=== PATIENT | male | born 1945 | race Caucasian/White ===

== ENCOUNTER 2017-02-23 10:28 | Emergency (ER) | payer MEDICARE, BC ==
[2017-02-23] MEDS ORDERED: 0.9 % SODIUM CHLORIDE 1,000 ML BAG IV ONE (11:13)
[2017-02-23 11:35] LABS: BASO % 0.2 % (0-6); EOS % 1.5 % (0-6); GRAN % 78.7 % (47-80); HEMATOCRIT 41.7 % (42.0-52.0); HEMOGLOBIN 13.9 gm/dl (14.0-18.0); LYMPH % 11.4 % (16-45); MEAN CELL VOLUME 96.3 fl (81-97); MEAN CORPUSCULAR HEMOGLOBIN 32.1 pg (27-33); MEAN CORPUSCULAR HGB CONC 33.3 g/dl (32-36); MEAN PLATELET VOLUME 11.9 fl (7.4-10.4); MONO % 8.2 % (0-9); PLATELET COUNT 242 K/uL (130-400); RED BLOOD COUNT 4.33 M/uL (4.40-5.70); RED CELL DISTRIBUTION WIDTH 16.5 % (11.5-14.5)
--- NOTE | 2017-02-23 11:35 | Emergency Department Record ---
History of Present Illness - General Chief complaint: Hypergylcemia Stated complaint: HIGH BLOOD SUGAR Time Seen by Provider: 02/23/17 10:39 Source: Patient Mode of Arrival: Ambulatory Limitations: No limitations - History of Present Illness Initial comments: pt comes in because he has been turning yellow and itching over the last 5 days. he also has had a 50lb wt loss over the last 6 months without trying -: Unknown Location: Generalized Associated Symptoms: Easy bruising, Loss of appetite, Nausea/vomiting - Renu Coma Scale Eye Response: (4) Open spontaneously Motor Response: (6) Obeys commands Verbal Response: (5) Oriented Renu Total: 15 - Related Data Previous Rx's Medication Instructions Recorded Metoprolol Succinate [Toprol Xl] 50 mg PO BID #60 tab.er.24h 03/11/15 Allergies Allergy/AdvReac Type Severity Reaction Status Date / Time Penicillins Allergy Unknown RASH Verified 02/23/17 10:39 mupirocin [From Bactroban] Allergy HIVES Verified 02/23/17 10:39 mupirocin calcium Allergy HIVES Verified 02/23/17 10:39 [From Bactroban] varenicline tartrate Allergy RASH Verified 02/23/17 10:39 [From Chantix] Travel Screening - Travel/Exposure Within Last 30 Days Have you traveled within the last 30 days?: No Review of Systems Reviewed: No additional complaints except as noted below Constitutional: Reports: As per HPI. Denies: Chills, Fever, Malaise, Night sweats, Weakness, Weight change Eyes: Reports: As per HPI. Denies: Eye discharge, Eye pain, Photophobia, Vision change ENT: Reports: As per HPI. Denies: Congestion, Dental pain, Ear pain, Epistaxis , Hearing loss, Throat pain Respiratory: Reports: As per HPI. Denies: Cough, Dyspnea, Hemoptysis, Stridor, Wheezes Cardiovascular: Reports: As per HPI. Denies: Arrhythmia, Chest pain, Dyspnea on exertion, Edema, Murmurs, Orthopnea, Palpitations, Paroxysmal nocturnal dyspnea, Rheumatic Fever, Syncope Endocrine: Reports: As per HPI. Denies: Fatigue, Heat or cold intolerance, Polydipsia, Polyuria Gastrointestinal: Reports: As per HPI. Denies: Abdominal pain, Constipation, Diarrhea, Hematemesis, Hematochezia, Melena, Nausea, Vomiting Genitourinary: Reports: As per HPI. Denies: Dysuria, Frequency, Hematuria, Incontinence, Retention, Testicular pain, Testicular mass, Urgency Musculoskeletal: Reports: As per HPI. Denies: Arthralgia, Back pain, Gout, Joint swelling, Myalgia, Neck pain Skin: Reports: As per HPI. Denies: Bruising, Change in color, Change in hair/ nails, Lesions, Pruritus, Rash Neurological: Reports: As per HPI. Denies: Abnormal gait, Confusion, Headache, Numbness, Paresthesias, Seizure, Tingling, Tremors, Vertigo, Weakness Psychiatric: Reports: As per HPI. Denies: Anxiety, Auditory hallucinations, Depression, Homicidal thoughts, Suicidal thoughts, Visual hallucinations Hematological/Lymphatic: Reports: As per HPI. Denies: Anemia, Blood Clots, Easy bleeding, Easy bruising, Swollen glands Past Medical History - SOCIAL HISTORY Smoking Status: Current every day smoker Alcohol Use: None Drug Use: None - RESPIRATORY Hx Respiratory Disorders: Yes Hx Asthma: Yes Hx Bronchitis: Yes - CARDIOVASCULAR Hx Cardio Disorders: Yes Hx Abnormal EKG: Yes Hx Cardiac Cath: Yes Hx Edema: Yes (2002) Hx Heart Attack: Yes (2002) Hx Hypertension: No Hx Irregular Heartbeat: Yes (svt; had ablation years ago; dr vieira; still has occasioinal runs svt) Hx Palpitations: Yes Hx Coronary Stent: Yes (;) Hx Percutaneous Transluminal Coronary Angioplasty (PTCA): Yes Comment:: CAD, stent placed 2002, murmur - NEURO Hx Neuro Disorders: No - GI Hx GI Disorders: Yes Hx Reflux: Yes Hx of Polyps: Yes - Hx Genitourinary Disorders: Yes Hx Prostate Problems: Yes - ENDOCRINE Hx Endocrine Disorders: Yes Hx Diabetes: Yes (DM2) - MUSCULOSKELETAL Hx Musculoskeletal Disorders: No - PSYCH Hx Psych Problems: No - HEMATOLOGY/ONCOLOGY Hx Hematology/Oncology Disorders: No Family Medical History Any Significant Family History?: Yes Hx Alcohol Use: Father Hx Cancer: Father, Brother/Sister Hx Dementia: Brother/Sister Hx Diabetes: Mother Hx Heart Disease: Father, Mother Hx HTN: Mother Hx Resp Disorders: Father Physical Exam - General General Appearance: Alert, Oriented x3, Cooperative, Mild distress - Head Head exam: Normal inspection - Eye Eye exam: Normal appearance, PERRL, EOMI, Scleral icterus Pupils: Normal accommodation - ENT ENT exam: Normal exam, Mucous membranes moist, Normal external ear exam, Normal orophraynx Ear exam: Normal external inspection. negative: External canal tenderness Nasal Exam: Normal inspection. negative: Discharge, Sinus tenderness Mouth exam: Normal external inspection, Tongue normal Teeth exam: Normal inspection. negative: Dental caries Throat exam: Normal inspection. negative: Tonsillar erythema, Tonsillar exudate - Neck Neck exam: Normal inspection, Full ROM. negative: Tenderness - Respiratory Respiratory exam: Normal lung sounds bilaterally. negative: Respiratory distress - Cardiovascular Cardiovascular Exam: Regular rate, Normal rhythm, Normal heart sounds - GI/Abdominal GI/Abdominal exam: Soft, Normal bowel sounds, Tenderness - Rectal Rectal exam: Deferred - exam: Deferred - Extremities Extremities exam: Normal inspection, Full ROM, Normal capillary refill. negative: Tenderness - Back Back exam: Reports: Normal inspection, Full ROM. Denies: Muscle spasm, Rash noted, Tenderness - Neurological Neurological exam: Alert, CN II-XII intact, Normal gait, Oriented X3 - Psychiatric Psychiatric exam: Normal affect, Normal mood - Skin Skin exam: Dry, Intact, Warm, Other (jaundice) Course Vital Signs 02/23/17 10:31 Temperature 97.7 F Pulse Rate 60 Respiratory 18 Rate Blood Pressure 108/78 Pulse Ox 98 Medical Decision Making - Lab Data Result diagrams: 02/23/17 11:23 02/23/17 11:23 Disposition Disposition: Transfer Clinical Impression: Pancreatic mass, Jaundice, Prostatic mass, Biliary obstruction, Weight loss Disposition: Acute Care Hospital Transfer Transfer To: [facility] Reason For Transfer: needs specialists Accepting Physician: dr scott Time Discussed w/Accepting Physician: 13:36 Forms: Patient Portal Access Quality - Quality Measures Quality Measures: N/A - Blood Pressure Screening Does Patient Have Any of the Following: No Blood Pressure Classification: Normal BP Reading Systolic Measurement: 108 Diastolic Measurement: 78 Screening for High Blood Pressure: < Normal BP, F/U Not Required > [G8783]
[2017-02-23 11:37] LABS: URINE APPEARANCE CLEAR; URINE BILIRUBIN MODERATE (NEGATIVE); URINE BLOOD NEGATIVE (NEGATIVE); URINE KETONE TRACE (NEGATIVE); URINE LEUKOCYTE ESTERASE NEGATIVE (NEGATIVE); URINE NITRITE NEGATIVE (NEGATIVE); URINE PROTEIN NEGATIVE (NEGATIVE)
[2017-02-23 11:40] LABS: URINE COLOR ORANGE; URINE GLUCOSE (UA) >=1000 mg/dL (NEGATIVE)
[2017-02-23 11:50] LABS: ALBUMIN 3.8 g/dL (4.0-5.0); ALKALINE PHOSPHATASE 943 U/L (40-129); ALT/SGPT 410 U/L (<41); AST/SGOT 266 U/L (10.0-50.0); BILIRUBIN,DIRECT 8.8 mg/dL (0-0.3); BLOOD UREA NITROGEN 31 mg/dL (8-23); CREATININE 0.9 mg/dL (0.7-1.2); EST GLOMERULAR FILTRATION RATE > 60 mL/min; GLUCOSE,RANDOM 205 mg/dL (74-109); LIPASE 13 U/L (13-60); TOTAL PROTEIN 6.8 g/dL (6.6-8.7)
[2017-02-23 23:58] LABS: HEP A AB IGM Nonreactive (Nonreactive); HEPATITIS B CORE ANTIBODY,IGM Nonreactive (Nonreactive); HEPATITIS B SURFACE ANTIGEN Nonreactive (Nonreactive)
[2017-02-24 07:27] LABS: HEPATITIS C VIRUS ANTIBODY Equivocal (Nonreactive)
--- NOTE | 2017-02-24 08:56 | CT SCAN REPORT ---
EXAM: CT OF THE ABDOMEN AND PELVIS HISTORY: ITCHING AND WEIGHT LOSS. TECHNIQUE: CT of the abdomen and pelvis was performed following IV administration of 100 ml of Omnipaque 300 contrast. Oral contrast was also utilized. Comparison: None. FINDINGS: Limited evaluation of the lung bases is unremarkable. The osseous structures are grossly intact. Fatty infiltrative change to the liver. The spleen is unremarkable. Nodularity to the adrenal glands bilaterally. Left adrenal nodule measures 2.2 x 1.4 cm. Right adrenal nodule measures 1.4 x 1.2 cm. Parapelvic cysts of the left kidney. The kidneys are otherwise unremarkable. There is a moderate degree of motion artifact. The gallbladder is present. There is intra and extrahepatic biliary ductal dilatation. The maximal diameter of the CBD is approximately 16 mm, distally. Findings are secondary to a poorly defined mass in the region of the pancreatic head measuring approximately 2.2 x 1.9 x 2.7 cm. Findings are highly suspicious for malignancy. No free air or free fluid. Abundant stool in the colon. Moderate atheromatous change. Enlargement of the prostate with a hyperdense nodule in the left aspect of the prostate measuring 1.5 x 1.4 cm. The osseous structures are grossly intact. IMPRESSION: 1. INTRA AND EXTRAHEPATIC BILIARY DUCTAL DILATATION, SECONDARY TO A POORLY DEFINED AND HYPODENSE MASS IN THE REGION OF THE PANCREATIC HEAD. FINDINGS ARE CONCERNING FOR MALIGNANCY. 2. BILATERAL ADRENAL NODULES. THESE ARE NONSPECIFIC. THESE COULD FURTHER BE ASSESSED WITH MULTIPHASIC MRI. 3. UNDERLYING FATTY INFILTRATIVE CHANGE TO THE LIVER. 4. ENLARGEMENT OF THE PROSTATE WITH A HYPERDENSE NODULE IN THE LEFT ASPECT OF THE PROSTATE. CORRELATE WITH PHYSICAL EXAM AND PSA RESULTS. 5. ABUNDANT STOOL IN THE COLON. JOB NUMBER: [id number] [facility]
== END 2017-02-23 14:30 | disposition short-term general hospital (02) ==
LOC: ER 10:28
DX: K86.9 Disease of pancreas, unspecified (principal); N42.89 Other specified disorders of prostate; K83.1 Obstruction of bile duct; R17 Unspecified jaundice; R11.2 Nausea with vomiting, unspecified; R63.4 Abnormal weight loss; E11.9 Type 2 diabetes mellitus without complications; I25.2 Old myocardial infarction; F17.210 Nicotine dependence, cigarettes, uncomplicated
CPT/HCPCS: 36416; 74177; 80048; 80076; 81003; 82948; 83605; 83690; 85025; 96360; 96361; 99285; G0103; J7030

== ENCOUNTER 2017-03-25 03:33 | Emergency (ER) | payer MEDICARE, BC ==
[2017-03-25] MEDS ORDERED: 0.9 % SODIUM CHLORIDE 1,000 ML BAG IV ONE (03:50)
[2017-03-25 04:05] LABS: HEMATOCRIT 36.6 % (42.0-52.0); HEMOGLOBIN 11.8 gm/dl (14.0-18.0); MEAN CELL VOLUME 99.5 fl (81-97); MEAN CORPUSCULAR HGB CONC 32.2 g/dl (32-36); MEAN PLATELET VOLUME 10.5 fl (7.4-10.4); PLATELET COUNT 393 K/uL (130-400); RED BLOOD COUNT 3.68 M/uL (4.40-5.70); RED CELL DISTRIBUTION WIDTH 14.7 % (11.5-14.5); WHITE BLOOD COUNT W/O DIFF 17.9 K/uL (4.2-12.2)
[2017-03-25 04:20] LABS: PLATELET ESTIMATE NORMAL (NORMAL)
--- NOTE | 2017-03-25 04:21 | Emergency Department Record ---
History of Present Illness - General Chief Complaint: Rapid heartbeat Stated Complaint: RAPID HEART BEAT Time Seen by Provider: 03/25/17 03:39 Source: Patient Mode of Arrival: Wheelchair Limitations: No limitations - History of Present Illness Initial Comments: pt has had palpitations and rapid hr for 1 hour. pt has had svt many times in the past. he denies any chest pain. pt had a whipple procedure on 02/28 for pancreatic mass and is due to start chemo. pt denies any leg pain or sob MD Complaint: "Heart racing", Rapid heart beat Onset/Timin -: Minutes(s) Context: Awoke with symptoms Arrythmia History: SVT Associated Symptoms: Denies other symptoms Treatments Prior to Arrival: Vagal maneuvers - Related Data Home Medications Medication Instructions Recorded Confirmed Last Taken Montelukast Sodium [Singulair] 10 mg PO QHS 03/25/17 03/25/17 Unknown Pioglitazone HCl [Actos] 15 mg PO DAILY 03/25/17 03/25/17 Unknown Allergies Allergy/AdvReac Type Severity Reaction Status Date / Time Penicillins Allergy Unknown RASH Verified 03/25/17 03:35 mupirocin [From Bactroban] Allergy HIVES Verified 03/25/17 03:35 mupirocin calcium Allergy HIVES Verified 03/25/17 03:35 [From Bactroban] varenicline tartrate Allergy RASH Verified 03/25/17 03:35 [From Chantix] Travel Screening - Travel/Exposure Within Last 30 Days Have you traveled within the last 30 days?: No - Travel/Exposure Within Last Year Have you traveled outside the [place] in the last year?: No - Additonal Travel Details Have you been exposed to anyone with a communicable illness?: No - Travel Symptoms Symptom Screening: None Review of Systems Reviewed: No additional complaints except as noted below Constitutional: Reports: As per HPI. Denies: Chills, Fever, Malaise, Night sweats, Weakness, Weight change Eyes: Reports: As per HPI. Denies: Eye discharge, Eye pain, Photophobia, Vision change ENT: Reports: As per HPI. Denies: Congestion, Dental pain, Ear pain, Epistaxis , Hearing loss, Throat pain Respiratory: Reports: As per HPI. Denies: Cough, Dyspnea, Hemoptysis, Stridor, Wheezes Cardiovascular: Reports: As per HPI. Denies: Arrhythmia, Chest pain, Dyspnea on exertion, Edema, Murmurs, Orthopnea, Palpitations, Paroxysmal nocturnal dyspnea, Rheumatic Fever, Syncope Endocrine: Reports: As per HPI. Denies: Fatigue, Heat or cold intolerance, Polydipsia, Polyuria Gastrointestinal: Reports: As per HPI. Denies: Abdominal pain, Constipation, Diarrhea, Hematemesis, Hematochezia, Melena, Nausea, Vomiting Genitourinary: Reports: As per HPI. Denies: Dysuria, Frequency, Hematuria, Incontinence, Retention, Testicular pain, Testicular mass, Urgency Musculoskeletal: Reports: As per HPI. Denies: Arthralgia, Back pain, Gout, Joint swelling, Myalgia, Neck pain Skin: Reports: As per HPI. Denies: Bruising, Change in color, Change in hair/ nails, Lesions, Pruritus, Rash Neurological: Reports: As per HPI. Denies: Abnormal gait, Confusion, Headache, Numbness, Paresthesias, Seizure, Tingling, Tremors, Vertigo, Weakness Psychiatric: Reports: As per HPI. Denies: Anxiety, Auditory hallucinations, Depression, Homicidal thoughts, Suicidal thoughts, Visual hallucinations Hematological/Lymphatic: Reports: As per HPI. Denies: Anemia, Blood Clots, Easy bleeding, Easy bruising, Swollen glands Past Medical History - SOCIAL HISTORY Smoking Status: Light tobacco smoker (<10/day) Alcohol Use: None Drug Use: None - RESPIRATORY Hx Respiratory Disorders: Yes Hx Asthma: Yes Hx Bronchitis: Yes - CARDIOVASCULAR Hx Cardio Disorders: Yes Hx Abnormal EKG: Yes Hx Cardiac Cath: Yes Hx Edema: Yes (2002) Hx Heart Attack: Yes (2002) Hx Hypertension: No Hx Irregular Heartbeat: Yes (svt; had ablation years ago; dr vieira; still has occasioinal runs svt) Hx Palpitations: Yes Hx Coronary Stent: Yes (4;) Hx Percutaneous Transluminal Coronary Angioplasty (PTCA): Yes Comment:: CAD, stent placed 2002, murmur - NEURO Hx Neuro Disorders: No - GI Hx GI Disorders: Yes Hx Reflux: Yes Hx of Polyps: Yes - Hx Genitourinary Disorders: Yes Hx Prostate Problems: Yes - ENDOCRINE Hx Endocrine Disorders: Yes Hx Diabetes: Yes (DM2) - MUSCULOSKELETAL Hx Musculoskeletal Disorders: No - PSYCH Hx Psych Problems: No - HEMATOLOGY/ONCOLOGY Hx Hematology/Oncology Disorders: No Family Medical History Any Significant Family History?: No Hx Alcohol Use: Father Hx Cancer: Father, Brother/Sister Hx Dementia: Brother/Sister Hx Diabetes: Mother Hx Heart Disease: Father, Mother Hx HTN: Mother Hx Resp Disorders: Father Physical Exam - General General Appearance: Alert, Oriented x3, Cooperative, Mild distress - Head Head exam: Normal inspection - Eye Eye exam: Normal appearance, PERRL, EOMI Pupils: Normal accommodation - ENT ENT exam: Normal exam, Mucous membranes moist, Normal external ear exam, Normal orophraynx Ear exam: Normal external inspection. negative: External canal tenderness Nasal Exam: Normal inspection. negative: Discharge, Sinus tenderness Mouth exam: Normal external inspection, Tongue normal Teeth exam: Normal inspection. negative: Dental caries Throat exam: Normal inspection. negative: Tonsillar erythema, Tonsillar exudate - Neck Neck exam: Normal inspection, Full ROM. negative: Tenderness - Respiratory Respiratory exam: Normal lung sounds bilaterally. negative: Respiratory distress - Cardiovascular Cardiovascular Exam: Normal rhythm, Normal heart sounds, Tachycardia - GI/Abdominal GI/Abdominal exam: Soft, Normal bowel sounds, Tenderness - Rectal Rectal exam: Deferred - exam: Deferred - Extremities Extremities exam: Normal inspection, Full ROM, Normal capillary refill. negative: Tenderness - Back Back exam: Reports: Normal inspection, Full ROM. Denies: Muscle spasm, Rash noted, Tenderness - Neurological Neurological exam: Alert, CN II-XII intact, Normal gait, Oriented X3 - Psychiatric Psychiatric exam: Normal affect, Normal mood - Skin Skin exam: Dry, Intact, Normal color, Warm Course Vital Signs 03/25/17 03:35 Temperature 97.6 F Pulse Rate 180 H Respiratory 28 H Rate Blood Pressure 89/52 Pulse Ox 100 - Reevaluation(s) Reevaluation #1: 03/25/17 04:21 pt spontaneously converted shortly after arrival prior to recieving any meds Medical Decision Making - Lab Data Result diagrams: 03/25/17 03:43 03/25/17 03:43 Lab Results 03/25/17 Range/Units 03:43 WBC 17.9 H (4.2-12.2) K/uL RBC 3.68 L (4.40-5.70) M/uL Hgb 11.8 L (14.0-18.0) gm/dl Hct 36.6 L (42.0-52.0) % MCV 99.5 H (81-97) fl MCH 32.0 (27-33) pg MCHC 32.2 (32-36) g/dl RDW 14.7 H (11.5-14.5) % Plt Count 393 (130-400) K/uL MPV 10.5 H (7.4-10.4) fl Eosinophils % Not Reportable Basophils % Not Reportable Disposition Disposition: Discharge Clinical Impression: SVT (supraventricular tachycardia) Hypotension Qualifiers: Hypotension type: hypotension due to drug Qualified Code(s): I95.2 - Hypotension due to drugs Disposition: Home, Self-Care Condition: (1) Good Instructions: Supraventricular Tachycardia (ED), Valsalva Maneuver (ED), Hypotension (ED) Additional Instructions: follow up with family doctor and animal control specialist. return sooner if worse. stop zestoretic [lisinopril/hctz]. stand slowly. Forms: Patient Portal Access Quality - Quality Measures Quality Measures: N/A - Blood Pressure Screening Does Patient Have Any of the Following: No Blood Pressure Classification: Normal BP Reading Systolic Measurement: 89 Diastolic Measurement: 52 Screening for High Blood Pressure: < Normal BP, F/U Not Required > [G8783]
[2017-03-25 04:24] LABS: BLOOD UREA NITROGEN 17 mg/dL (8-23); EST GLOMERULAR FILTRATION RATE > 60 mL/min
[2017-03-25 04:25] LABS: TOTAL PROTEIN 6.8 g/dL (6.6-8.7)
[2017-03-25 04:27] LABS: GLUCOSE,RANDOM 213 mg/dL (74-109)
[2017-03-25 04:29] LABS: ALB/GLOB RATIO 0.7 (1.1-1.8); ALBUMIN 2.9 g/dL (4.0-5.0); ALT/SGPT 59 U/L (<41); AST/SGOT 53 U/L (10.0-50.0)
[2017-03-25 04:30] LABS: ALKALINE PHOSPHATASE 242 U/L (40-129); CREATINE PHOSPHOKINASE 43 U/L (39-308)
[2017-03-25 04:32] LABS: CKMB 1.7 ng/mL (<6.73)
--- NOTE | 2017-03-26 19:17 | RADIOLOGY REPORT ---
EXAM: CHEST AP or PA ONLY HISTORY: DIFFICULTY BREATHING. TECHNIQUE: A portable AP view of the chest was performed. FINDINGS: Heart size is normal. Lungs are hyperinflated. No infiltrate or pleural effusion. The osseous structures are normal. IMPRESSION: NEGATIVE CHEST EXAMINATION. JOB NUMBER: [id number] [facility]
== END 2017-03-25 05:14 | disposition home or self-care (01) ==
LOC: ER 03:33
DX: I47.1 Supraventricular tachycardia (principal); I95.2 Hypotension due to drugs; T46.4X5A Adverse effect of angiotensin-converting-enzyme inhibitors, initial encounter; R06.00 Dyspnea, unspecified; I25.2 Old myocardial infarction; E11.9 Type 2 diabetes mellitus without complications; C25.9 Malignant neoplasm of pancreas, unspecified; F17.210 Nicotine dependence, cigarettes, uncomplicated
CPT/HCPCS: 71010; 80053; 82550; 82553; 84484; 85027; 93005; 93010; 96360; 99284; J7030

== ENCOUNTER 2017-04-23 20:11 | Inpatient (IN) | payer MEDICARE, BC ==
[2017-04-23] MEDS ORDERED: SODIUM CHLORIDE 0.9% 500 ML IV ONE (20:28)
[2017-04-23] MEDS ORDERED: ONDANSETRON HCL IV 4 MG/2 ML VIAL IV ONE (20:28)
[2017-04-23] MEDS ORDERED: MORPHINE SULFATE 5 MG/ML PFS IVP ONE (20:29)
--- NOTE | 2017-04-23 20:32 | Emergency Department Record ---
History of Present Illness - General Chief Complaint: Abdominal Pain Stated Complaint: ABDOMINAL PAIN AND ACID REFLUX Time Seen by Provider: 04/23/17 20:23 Source: Patient Mode of Arrival: Ambulatory Limitations: No limitations - History of Present Illness Initial Comments: The patient is here due to upper abdominal pain for 3 days. The pain is aching and associated with nausea and reflux like regurgitation symptoms. He has been unable to eat for 3 days also. The patient denies any vomiting, but has had some loose stools. He did just have a Whipple procedure performed 8 weeks ago at [facility] by Dr. Fuentes. He has had pain since but it has been increased for the last 3 days. MD Complaint: Abdominal pain Onset/Timin -: Days(s) Location: Epigastric, Periumbilical Consistency: Intermittent Improves With: Bowel movement Associated Symptoms: Diarrhea, Nausea - Related Data Home Medications Medication Instructions Recorded Confirmed Last Taken Ipratropium/Albuterol Sulfate 1 puff IH QID 04/23/17 04/23/17 Unknown [Combivent] Lipase/Protease/Amylase [Shauna Thibodeaux 1 each PO DAILY 04/23/17 04/23/17 Unknown 36,000 Units Capsule] Prochlorperazine Maleate 10 mg PO Q6H PRN 04/23/17 04/23/17 Unknown [Prochlorperazine Maleate] Allergies Allergy/AdvReac Type Severity Reaction Status Date / Time Penicillins Allergy Unknown RASH Verified 03/25/17 03:35 mupirocin [From Bactroban] Allergy HIVES Verified 03/25/17 03:35 mupirocin calcium Allergy HIVES Verified 03/25/17 03:35 [From Bactroban] varenicline tartrate Allergy RASH Verified 03/25/17 03:35 [From Chantix] Travel Screening - Travel/Exposure Within Last 30 Days Have you traveled within the last 30 days?: No - Travel Symptoms Symptom Screening: None Review of Systems Constitutional: Denies: Chills, Fever Eyes: Denies: Eye discharge ENT: Denies: Congestion Respiratory: Denies: Cough, Dyspnea Past Medical History - SOCIAL HISTORY Smoking Status: Current every day smoker - RESPIRATORY Hx Respiratory Disorders: Yes Hx Asthma: Yes Hx Bronchitis: Yes - CARDIOVASCULAR Hx Cardio Disorders: Yes Hx Abnormal EKG: Yes Hx Cardiac Cath: Yes Hx Edema: Yes (2002) Hx Heart Attack: Yes (2002) Hx Hypertension: No Hx Irregular Heartbeat: Yes (svt; had ablation years ago; dr vieira; still has occasioinal runs svt) Hx Palpitations: Yes Hx Coronary Stent: Yes (4;) Hx Percutaneous Transluminal Coronary Angioplasty (PTCA): Yes Comment:: CAD, stent placed 2002, murmur - NEURO Hx Neuro Disorders: No - GI Hx GI Disorders: Yes Hx Reflux: Yes Hx of Polyps: Yes - Hx Genitourinary Disorders: Yes Hx Prostate Problems: Yes - ENDOCRINE Hx Endocrine Disorders: Yes Hx Diabetes: Yes (DM2) - MUSCULOSKELETAL Hx Musculoskeletal Disorders: No - PSYCH Hx Psych Problems: No - HEMATOLOGY/ONCOLOGY Hx Hematology/Oncology Disorders: No Family Medical History Any Significant Family History?: Yes Hx Alcohol Use: Father Hx Cancer: Father, Brother/Sister Hx Dementia: Brother/Sister Hx Diabetes: Mother Hx Heart Disease: Father, Mother Hx HTN: Mother Hx Resp Disorders: Father Physical Exam - General General Appearance: Alert, Oriented x3, Cooperative, No acute distress - Head Head exam: Atraumatic, Normocephalic, Normal inspection - Eye Eye exam: Normal appearance, PERRL - Neck Neck exam: Normal inspection, Full ROM. negative: Tenderness - Respiratory Respiratory exam: Normal lung sounds bilaterally. negative: Respiratory distress - Cardiovascular Cardiovascular Exam: Regular rate, Normal rhythm, Normal heart sounds - GI/Abdominal GI/Abdominal exam: Soft, Tenderness (There is diffuse upper abdominal tenderness.). negative: Distended, Hypoactive bowel sounds, Rebound, Rigid - Extremities Extremities exam: Normal inspection, Full ROM, Normal capillary refill. negative: Tenderness Course Vital Signs 04/23/17 20:16 Temperature 97.8 F Pulse Rate 70 Respiratory 28 H Rate Blood Pressure 144/101 Pulse Ox 97 - Reevaluation(s) Reevaluation #1: The patient is doing OK at this time. He is not requesting any more pain medicines. He is drinking his oral contrast slowly. 04/23/17 20:53 Reevaluation #2: The patient is doing OK at this time. He denies the need for any pain medicines. He now says the pain is now worse in the lower abdomen bilaterally. 04/23/17 21:59 Reevaluation #3: I did discuss the case with the patient's surgeon eligibility consultant at [facility] Dr. Chavarria. He suggests that the patient just needs an NGT and can be admitted here at [facility]. If the patient's case worsens we can transfer the patient then. I did discuss this with the patient and he agrees with the plan and would like to be admitted here at [facility]. He presently is very stable and in good spirits. 04/23/17 23:26 Medical Decision Making - Data Complexity MDM Data: Labs Ordered and/or Reviewed, X-Ray Ordered and/or Reviewed - Lab Data Result diagrams: 04/23/17 20:20 04/23/17 20:20 - Radiology Data Radiology results: Report reviewed (CT: Gastric outlet obstruction with a few small bowel air fluid levels.) Disposition Disposition: Admit Clinical Impression: SBO (small bowel obstruction) Disposition: Still a Patient at [facility] Decision to Admit: Admit from ER Decision to Admit Date: 04/23/17 Decision to Admit Time: 23:28 Accepting Physician: Flores Time Discussed w/Accepting Physician: 23:28 Condition: (2) Stable Time of Disposition: 23:28 Quality - Quality Measures Quality Measures: N/A - Blood Pressure Screening View Details: Yes Does Patient Have Any of the Following: Active Dx of HTN Blood Pressure Classification: Hypertensive Reading Systolic Measurement: 144 Diastolic Measurement: 101 Screening for High Blood Pressure: Patient Exclusion, Hx of HTN [G9744]
[2017-04-23 20:36] LABS: BASO % 0.4 % (0-6); HEMATOCRIT 44.9 % (42.0-52.0); HEMOGLOBIN 15.1 gm/dl (14.0-18.0); LYMPH % 17.6 % (16-45); MEAN CELL VOLUME 95.1 fl (81-97); MEAN CORPUSCULAR HGB CONC 33.6 g/dl (32-36); MEAN PLATELET VOLUME 10.7 fl (7.4-10.4); PLATELET COUNT 273 K/uL (130-400); RED BLOOD COUNT 4.72 M/uL (4.40-5.70); RED CELL DISTRIBUTION WIDTH 14.7 % (11.5-14.5)
[2017-04-23 20:50] LABS: BLOOD UREA NITROGEN 17 mg/dL (8-23)
[2017-04-23 20:51] LABS: CREATININE 0.9 mg/dL (0.7-1.2); EST GLOMERULAR FILTRATION RATE > 60 mL/min; TOTAL PROTEIN 7.6 g/dL (6.6-8.7)
[2017-04-23 20:53] LABS: GLUCOSE,RANDOM 150 mg/dL (74-109)
[2017-04-23 20:56] LABS: ALBUMIN 4.4 g/dL (4.0-5.0); ALKALINE PHOSPHATASE 507 U/L (40-129); ALT/SGPT 105 U/L (<41); AST/SGOT 49 U/L (10.0-50.0); BILIRUBIN,DIRECT 0.3 mg/dL (0-0.3); LIPASE 5 U/L (13-60)
[2017-04-23] MEDS ORDERED: 0.9 % SODIUM CHLORIDE 1,000 ML BAG IV ONE (21:02)
[2017-04-23 23:02] LABS: URINE APPEARANCE CLEAR; URINE BILIRUBIN NEGATIVE (NEGATIVE); URINE BLOOD NEGATIVE (NEGATIVE); URINE COLOR YELLOW; URINE KETONE TRACE (NEGATIVE); URINE LEUKOCYTE ESTERASE NEGATIVE (NEGATIVE); URINE NITRITE NEGATIVE (NEGATIVE); URINE PROTEIN NEGATIVE (NEGATIVE); URINE UROBILINOGEN 0.2 E.U./dL (0.20 - 1.00)
[2017-04-24] MEDS ORDERED: MORPHINE SULFATE 5 MG/ML PFS IVP PRN (00:30)
[2017-04-24] MEDS ORDERED: IPRATROPIUM/ALBUTEROL 4 GM INH INH PRN (00:30)
[2017-04-24] MEDS ORDERED: POTASSIUM CHLORIDE/D5-0.9%NACL 20 MEQ/1,000 ML BAG IV ONE (00:30)
[2017-04-24] MEDS ORDERED: ONDANSETRON HCL IV 4 MG/2 ML VIAL IVP PRN (00:30)
[2017-04-24 06:45] LABS: BASO % 0.3 % (0-6); EOS % 6.8 % (0-6); GRAN % 67.1 % (47-80); HEMATOCRIT 40.9 % (42.0-52.0); HEMOGLOBIN 13.1 gm/dl (14.0-18.0); LYMPH % 18.1 % (16-45); MEAN CELL VOLUME 95.3 fl (81-97); MEAN CORPUSCULAR HEMOGLOBIN 30.5 pg (27-33); MEAN PLATELET VOLUME 10.2 fl (7.4-10.4); MONO % 7.7 % (0-9); PLATELET COUNT 241 K/uL (130-400); RED BLOOD COUNT 4.29 M/uL (4.40-5.70); RED CELL DISTRIBUTION WIDTH 14.6 % (11.5-14.5); WHITE BLOOD COUNT W/O DIFF 9.9 K/uL (4.2-12.2)
[2017-04-24 07:01] LABS: ALB/GLOB RATIO 1.2 (1.1-1.8); ALBUMIN 3.2 g/dL (4.0-5.0); ALKALINE PHOSPHATASE 375 U/L (40-129); ALT/SGPT 73 U/L (<41); AST/SGOT 30 U/L (10.0-50.0); BLOOD UREA NITROGEN 15 mg/dL (8-23); CREATININE 0.7 mg/dL (0.7-1.2); EST GLOMERULAR FILTRATION RATE > 60 mL/min; GLUCOSE,RANDOM 147 mg/dL (74-109); TOTAL PROTEIN 5.9 g/dL (6.6-8.7)
[2017-04-24] MEDS: IPRATROPIUM/ALBUTEROL (0.5MG/3MG) NEB INH SCH ×4 (09:27→21:14)
[2017-04-24] MEDS ORDERED: IPRATROPIUM/ALBUTEROL 4 GM INH INH SCH (10:00)
[2017-04-24] MEDS: PANTOPRAZOLE SODIUM IV 40 MG VIAL IV SCH (11:09)
[2017-04-24] MEDS: HUMULIN R 100 UNIT/ML VIAL SQ SCH ×2 (12:35→17:50)
[2017-04-24] MEDS: POTASSIUM CHLORIDE/D5-0.9%NACL 20 MEQ/1,000 ML BAG IV SCH (17:56)
[2017-04-25] MEDS: POTASSIUM CHLORIDE/D5-0.9%NACL 20 MEQ/1,000 ML BAG IV SCH ×2 (03:39→14:43)
[2017-04-25] MEDS: IPRATROPIUM/ALBUTEROL (0.5MG/3MG) NEB INH SCH ×2 (06:01→10:02)
--- NOTE | 2017-04-25 06:42 | CT SCAN REPORT ---
EXAM: CT SCAN ABDOMEN/PELVIS W CONTRAST HISTORY: PATIENT HAS A HISTORY OF WHIPPLE'S PROCEDURE. PATIENT IS IN GASTRIC DISTRESS. PATIENT HAS A HISTORY OF PANCREATIC CANCER. TECHNIQUE: Serial axial CT scan of the abdomen and pelvis was performed at 3.75 mm intervals from the dome diaphragm down to the pubic symphysis following the intravenous administration of 100 mL of Omnipaque 300. COMPARISON: Comparison studies of the abdomen and pelvis dated 02/23/2017 is provided. FINDINGS: Lung windows of the lung bases demonstrate no CT evidence of a focal infiltrate or pleural effusion. The visualized heart size and contour are within normal limits. The liver demonstrates air within the biliary system compatible with the patient 's history of Whipple's procedure. No suspicious hepatic lesions are identified. The spleen is unremarkable. Distal pancreatic body and tail appear unremarkable. Pancreatic head is not visualized, compatible with the patient's known history of Whipple's procedure. There is bilateral adrenal prominence, which is unchanged with respect to the prior CT scan. Differential considerations include adrenal hyperplasia. If there is further clinical concern, then MRI of the adrenal glands can be obtained for further evaluation. The gallbladder is surgically absent. There is no CT evidence of hydronephrosis or hydroureter. Prominent left parapelvic cysts are again identified. Mild ectasia infrarenal abdominal aorta is again noted and unchanged with respect to the prior CT scan. There is no CT evidence of retroperitoneal, pelvic , or inguinal lymphadenopathy. Nonspecific subcentimeter mesenteric lymph nodes are identified. These may be reactive. There is significant distention of the gastric lumen. These findings are suggestive of delayed gastric emptying, which is a common occurrence after Whipple's procedure. Multiple dilated loops of duodenum and jejunum are also identified. There are collapsed loops of small bowel distally. Partial small bowel obstruction cannot be excluded. There is no CT evidence of free intraperitoneal air or free intraperitoneal fluid. The urinary bladder is unremarkable. The prostate is significantly enlarged. Bone windows demonstrate no osteolytic or osteoblastic lesions. IMPRESSION: 1. SIGNIFICANT DISTENTION OF THE GASTRIC LUMEN. THIS FINDING IS COMPATIBLE WITH DELAYED GASTRIC EMPTYING, WHICH IS A COMMON OCCURRENCE AFTER WHIPPLE'S PROCEDURE. 2. THERE IS DISTENTION OF SEVERAL LOOPS OF PROXIMAL SMALL BOWEL. PARTIAL SMALL BOWEL OBSTRUCTION CANNOT BE ENTIRELY EXCLUDED. FOLLOW-UP KUB CAN BE OBTAINED UNTIL A RESOLUTION OF FINDINGS. 3. POSTOPERATIVE CHANGES ARE NOTED DISCUSSED ABOVE. 4. PROSTATIC HYPERTROPHY. JOB NUMBER: [id number] MTDD
[2017-04-25] MEDS: HUMULIN R 100 UNIT/ML VIAL SQ SCH ×2 (07:44→12:30)
[2017-04-25] MEDS ORDERED: METOPROLOL SUCC 50 MG TABLET PO SCH (10:00)
[2017-04-25] MEDS: PANTOPRAZOLE SODIUM IV 40 MG VIAL IV SCH (11:31)
--- NOTE | 2017-04-25 11:40 | History and Physical Report ---
CHIEF COMPLAINT: Abdominal pain, regurgitation, but not vomiting; not eating or drinking for the la st 2-3 days. He stated the pain is more left lower quadrant but bilateral lower abdominal pain. HISTORY OF PRESENT ILLNESS: This 71-year-old male had a Whipple procedure for pancreatic cancer approximately 8 weeks ago at [facility] by Dr. Padilla, [facility]. Dr. Mendoza contacted him last night in the emergency department and the recommendation was an Ng tube, 48 hours, to see if he conservatively resolves his obstructive findings. If worse, then we will rediscuss and reconsult surgery. Patient states that he had 8, all of his lymph nodes were negative for pancreatic cancer, and the cancer was in the head of the pancreas, and he was jaundiced about 6 days prior to his surgery, when the pancreatic cancer was discovered. Patient has an Ng tube presently. He got about 1000 ml of fluid, and he vomited when the NG tube was placed in the emergency department when it was first placed, and he has only had, since about 11:00 p.m. last night, 50 ml of fluid out, yellow bile. At this point, we will try clamping the tube and see how he does in about 4-5 hours. He states that abdominal pain is gone since the NG tube was placed. His belly is soft. He has bowel sounds present. He states he has not passed any gas, but he did have diarrhea prior to coming into the emergency department, and he has not been eating much in the last 3 or 4 days. He has lost about 7 pounds, per , over the last week. His primary doctor is Dr. Baker. Oncologist is Dr. Severino. PAST MEDICAL HISTORY: 1. Whipple procedure for pancreatic cancer, 8 weeks ago at [facility]. 2. COPD. 3. Coronary artery disease with stents. His software sales executive is Dr. Riggs. He does have a valve that leaks but being watched conservatively. 4. Diabetes mellitus, type 2. He is on oral meds, metformin, Actos, Jardiance. 5. Hypertension. 6. Hypercholesterolemia. 7. GERD. PAST SURGICAL HISTORY: Whipple procedure, 8 weeks ago at [facility]. He has had cardiac stents, ablation therapy by Dr. Gates for SVT. He has had a vasectomy, 1975; colonoscopies and cystoscopies; laser surgery to the left eye and right eye; hernia surgery, 2016; CURRENT MEDICATIONS: 1. Protonix 40 mg daily. 2. Metoprolol XL 50 mg 2 times a day. 3. Simvastatin 20 mg daily. 4. Aspirin 81 mg daily. 5. Metformin 1000 mg b.i.d. 6. Cialis 20 mg p.r.n. for erectile dysfunction. 7. Combivent inhaler 1 puff every 4 hours p.r.n. 8. Jardiance 25 mg daily. 9. Actos 50 mg daily. 10. DuoNebs every 4 hours p.r.n. 11. Singulair 10 mg daily. 12. Creon 36,000 unit capsules 1 with each meal and snacks. ALLERGIES: Bactroban cream, penicillin, Chantix. SOCIAL HISTORY: He is an everyday smoker, about a pack a day. No significant alcohol use. No recreational drug use. FAMILY HISTORY: Alcohol use in the father; cancer in the father, brother, and sister; dementia in brother and sister; diabetes for the mother; heart disease for the father and mother; hypertension in the mother; father has respiratory problems. SYSTEMS REVIEW: HEENT: Chronic cough. His breathing is stable, according to him, at this time, not coughing that much. Does not have a sore throat or congestion. No facial pain. The Ng tube is bothering his nose. Cardiovascular: No chest pain, palpitations, or arrhythmias. Respiratory: No cough, cold, or congestion. Gastrointestinal: See chief complaint. He did have nausea and regurgitation. He is feeling much better since the Ng tube is down. Genitourinary: No dysuria, hematuria, frequency, or burning on urination. Musculoskeletal: He does have diffuse arthritis, but walks around nicely. No pain on ambulation or moving his arms. Neurologic: No CVA, paralysis, or paresthesias. Endocrine: He has diabetes mellitus, type 2. Denies any hypothyroidism. Integument: No rash, ulcer, change in moles, or yellow skin. PHYSICAL EXAMINATION: VITAL SIGNS: Height 5 feet 9 inches. Weight 120 pounds. Temperature 98.6. Pulse 65. Blood pressure 141/71. Respiratory 20. Pulse ox 92% on room air. HEENT: Pupils equal, round, and reactive to light and accommodation. Extraocular muscles intact. Throat is clear. Nose is clear. Tympanic membranes are clear. NECK: Supple. No jugular venous distention. No hepatojugular reflux. No carotid bruits. Thyroid is smooth. LUNGS: Coarse breath sounds bilaterally and has a chronic cough. HEART: Regular rate and rhythm without murmurs, clicks, rubs, or gallops. ABDOMEN: No pain on palpation. Bowel sounds are present in all 4 quadrants. No masses palpated. Incision has healed nicely. EXTREMITIES: No pitting edema. No cyanosis. No clubbing. Full range of motion. Peripheral pulses good. BREASTS: Normal male breasts. RECTAL: Deferred. GENITOURINARY: Deferred. NEUROLOGIC: Cranial nerves 2 through 12 intact. No gross deficits. Sensation normal. Strength normal. Deep tendon reflexes good bilaterally. Babinski negative. MENTAL STATUS: Alert and oriented x3. IMPRESSION: 1. Partial small bowel obstruction. 2. COPD. 3. Coronary artery disease, stable. 4. Diabetes mellitus, type 2. 5. Hypertension. 6. GERD. 7. Status post pancreatic cancer, Whipple procedure 8 weeks ago. Oncology is scheduled to happen after the first of the year with Dr. Severino. I think he has already met with her. PLAN: We will clamp the Ng tube off. If he does not produce any accumulation of fluid in 4-6 hours, we will take the Ng tube out and gradually start back his diet. MTDD
--- NOTE | 2017-04-25 11:48 | RADIOLOGY REPORT ---
EXAM: ABDOMEN 2 VIEW HISTORY: FOLLOW-UP PARTIAL SMALL BOWEL OBSTRUCTION. TECHNIQUE: AP supine and upright views of the abdomen are obtained. COMPARISON: CT abdomen and pelvis with contrast dated 04/23/17. FINDINGS: Bowel contrast is now suggested within the left colon. No colonic dilatation is seen. No definite small bowel dilatation nor worrisome air-fluid level is identified. Postsurgical changes again noted in the upper abdomen. There is diffuse atherosclerosis without evidence of aneurysmal dilatation. No free intraperitoneal air. There are mild degenerative changes of the visualized spine and hips. IMPRESSION: 1. NO BOWEL DILATATION OR WORRISOME AIR-FLUID LEVEL. NO FREE INTRAPERITONEAL AIR. 2. BOWEL CONTRAST IS NOW DEMONSTRATED WITHIN THE LEFT COLON. 3. EXTENSIVE POSTSURGICAL CHANGES REDEMONSTRATED IN THE UPPER ABDOMEN. JOB NUMBER: [id number] [facility]
--- NOTE | 2017-04-25 11:51 | Discharge Note ---
VTE H&P Assessment - Risk for VTE Risk for VTE: No Risk Level: Very Low Risk Assessment Date: 04/24/17 Risk Assessment Time: 10:00 VTE Orders Placed or Will Be Placed: No VTE Reason for No Prophylaxis: Not Indicated Discharge Medications - Discharge Medications Home Medications: Ambulatory Orders Ipratropium/Albuterol Sulfate [Combivent] 1 - 2 puff IH QID PRN 08/30/14 [Last Taken 02/23/17] Metformin HCl 1,000 mg PO BIDAC 08/30/14 [Last Taken 02/23/17] Pantoprazole Sodium [Protonix] 40 mg PO QHS 08/30/14 [Last Taken 02/22/17] Simvastatin 20 mg PO QHS 08/30/14 [Last Taken 02/22/17] Tadalafil [Cialis] 20 mg PO ASDIR PRN 08/30/14 [Last Taken 02/23/17] Aspirin [Aspirin EC] 81 mg PO QHS 03/10/15 [Last Taken 02/22/17] Empagliflozin [Jardiance] 25 mg PO QD tab 03/22/17 [Last Taken Unknown] Metoprolol Succinate [Toprol Xl] 50 mg PO BID tab 03/22/17 [Last Taken Unknown] Montelukast Sodium [Singulair] 10 mg PO QHS 03/25/17 [Last Taken Unknown] Pioglitazone HCl [Actos] 15 mg PO DAILY 03/25/17 [Last Taken Unknown] Ipratropium/Albuterol Sulfate [Combivent] 1 puff IH QID 04/23/17 [Last Taken Unknown] Lipase/Protease/Amylase [Creon Dr 36,000 Units Capsule] 1 each PO DAILY [Last Taken Unknown] Prochlorperazine Maleate 10 mg PO Q6H PRN 04/23/17 [Last Taken Unknown] Discharge Note - Date Date of Discharge Note: 04/25/17 Disposition: Home, Self-Care Condition: (2) Stable Instructions: Abdominal Pain (ED) Additional Instructions: follow up with Dr. Patterson tomorrow as scheduled keep appointment with [facility] in May. Dr Randy phillips follow up with Whipple procedure eat 6 small meals a day and take creon pill before meals and snacks Forms: Patient Portal Access Activity at Discharge: Increase Activity as Tolerated Diet at Discharge: Low Fat, Low Cholesterol
[2017-04-25] MEDS ORDERED: [UNRECOGNIZED DRUG - REMARK] PO PRN ×2 (12:19→12:28)
--- NOTE | 2017-04-25 14:50 | Discharge Summary ---
DATE OF DISCHARGE: 04/25/2017 ADMITTING DIAGNOSES: 1. Partial small bowel obstruction, resolved. 2. History of diabetes mellitus, type 2. 3. COPD. 4. CAD with stents, stable. 5. Status post Whipple procedure for pancreatic cancer 8 weeks ago through [facility] at [facility], Dr. Padilla. ATTENDING PHYSICIAN: Ricardo Hilton D.O. REASON FOR HOSPITALIZATION: Abdominal pain and vomiting. Patient presented to the emergency department with abdominal pain and vomiting and a large distended stomach with possible small bowel obstruction, partial. Per CT scan and Dr. Mendoza's evaluation, an Ng tube was placed, 1000 ml of fluid was removed, and he felt much better. The next day, , the Ng tube was removed. He tolerated clear liquids. Today he was advanced to a soft diet. He has no abdominal distention. He has bowel sounds present in all 4 quadrants, and he has no abdominal pain. SIGNIFICANT FINDINGS: A CT scan revealed significant distention of the gastric lumen. This finding is compatible with delayed gastric emptying, which is a common occurrence after a Whipple procedure. There is distention of several loops of proximal small bowel. Partial small bowel obstruction cannot be entirely excluded. Follow-up KUB can be obtained until a resolution of findings. Postoperative changes are noted as described above, prostatic hypertrophy. Two-view abdominal was done on the day of discharge, which showed contrast into the colon and the rectum. No signs of a bowel obstruction. LABORATORY: WBC is 9,900. Hemoglobin is 13.1. Potassium 4.3, sodium 139, chloride 103, BUN 15, creatinine 0.7. His sugars have been running reasonably, 146. AST 38, ALT 73. Alkaline phosphatase 375. Total protein 5.9. Urine unremarkable. Trace of ketones. THERAPY PROVIDED: Patient had Ng tube, about 1000 ml of fluid came out, and he felt much better. He had no vomiting around the Ng tube. After about 8 hours of Ng tube it was removed, and he tolerated clear liquids. His diet was advanced to soft diet on the day of discharge. He is ambulating around the room nicely. He has no risk for DVT because of his mobility and the short length of stay. CONDITION AT DISCHARGE: Improved. Dr. Mendoza talked to the surgeon marketing automation specialist for [facility] on , and they felt that Ng tube placement was all that needed to done at this time and it would resolve on its own, and he was put in our hospital here. DISCHARGE INSTRUCTIONS: Follow up with Dr. Baker tomorrow. He has an appointment. Also follow up with [facility] in May. It is recommended that he have 6 small meals a day and have a Creon pill before each meal and before snacks. He is to continue his home medications of simvastatin, Actos, Protonix, Singulair, metoprolol succinate 50 mg b.i.d., metformin 1000 mg b.i.d., Creon 36,000, 1 before meals and snacks, Combivent 2 puffs every 4 hours p.r.n., DuoNeb treatments every 4 hours p.r.n., Jardiance 25 mg daily, and aspirin 81 mg daily. MTDD
[2017-04-25] MEDS ORDERED: MONTELUKAST SODIUM 10MG TABLET PO SCH (22:00)
== END 2017-04-25 15:42 | disposition home or self-care (01) | DRG 389 ==
LOC: ER 20:11 → MEDSURG 04-24 00:19
PROVIDERS: ADMIT Internal Medicine; ATTEND Internal Medicine
DX: K56.51 Intestinal adhesions [bands], with partial obstruction (principal); C25.9 Malignant neoplasm of pancreas, unspecified; E11.9 Type 2 diabetes mellitus without complications; Z79.84 Long term (current) use of oral hypoglycemic drugs; J44.9 Chronic obstructive pulmonary disease, unspecified; I25.10 Atherosclerotic heart disease of native coronary artery without angina pectoris; E78.00 Pure hypercholesterolemia, unspecified
CPT/HCPCS: 36416; 74020; 74177; 80048; 80053; 80076; 81003; 82948; 83690; 85025; 93041; 94640; 96374; 96375; 99239; 99285; C9113; J2405; J3480; J7030

== ENCOUNTER 2018-04-19 18:54 | Observation (INO) | payer MEDICARE, BC ==
[2018-04-19 19:34] LABS: HEMOGLOBIN 12.9 gm/dl (14.0-18.0); MEAN CELL VOLUME 97.5 fl (81-97); MEAN CORPUSCULAR HGB CONC 33.1 g/dl (32-36); MEAN PLATELET VOLUME 11.3 fl (7.4-10.4); MONO % 0.4 % (0-9); PLATELET COUNT 162 K/uL (130-400); RED CELL DISTRIBUTION WIDTH 16.8 % (11.5-14.5); URINE APPEARANCE CLEAR; URINE BILIRUBIN NEGATIVE (NEGATIVE); URINE BLOOD TRACE-I (NEGATIVE); URINE COLOR YELLOW; URINE KETONE NEGATIVE (NEGATIVE); URINE LEUKOCYTE ESTERASE NEGATIVE (NEGATIVE); URINE NITRITE NEGATIVE (NEGATIVE); URINE PROTEIN NEGATIVE (NEGATIVE); URINE UROBILINOGEN 0.2 E.U./dL (0.20 - 1.00)
[2018-04-19 19:38] LABS: MEAN CORPUSCULAR HEMOGLOBIN 32.2 pg (27-33)
[2018-04-19 19:39] LABS: URINE GLUCOSE (UA) >=1000 mg/dL (NEGATIVE)
[2018-04-19 19:44] LABS: BLOOD UREA NITROGEN 18 mg/dL (8-23); CREATININE 0.8 mg/dL (0.7-1.2); EST GLOMERULAR FILTRATION RATE > 60 mL/min; TOTAL PROTEIN 7.2 g/dL (6.6-8.7)
[2018-04-19 19:46] LABS: GLUCOSE,RANDOM 156 mg/dL (74-109)
[2018-04-19 19:49] LABS: ALB/GLOB RATIO 1.2 (1.1-1.8); ALBUMIN 3.9 g/dL (4.0-5.0); ALKALINE PHOSPHATASE 868 U/L (40-129); ALT/SGPT 118 U/L (<41); AST/SGOT 184 U/L (10.0-50.0)
[2018-04-19] MEDS ORDERED: ACETAMINOPHEN 500 MG TABLET PO ONE (19:57)
--- NOTE | 2018-04-19 19:58 | Emergency Department Record ---
History of Present Illness - General Chief Complaint: Fever Stated Complaint: FEVER AND CHILLS Time Seen by Provider: 04/19/18 19:02 Source: Patient, Family Mode of Arrival: Wheelchair Limitations: No limitations - History of Present Illness Initial Comments: pt brought in for fever and confusion. pt is undergoing radiation for prostate ca for 3 wks. he has a hx of pancreatic ca and had a whipple procedure a yr ago. he had diarrhea last weekend but that is better now. MD Complaint: Fever Onset/Timin -: Hour(s) Maximum Temperature: 103 F Temperature Source: Oral Context: Recent antibiotic use, Other Associated Symptoms: Chills, Confusion, Diarrhea Treatments Prior to Arrival: None - Related Data Home Medications Medication Instructions Recorded Confirmed Last Taken Multivitamin [Daily Multiple 1 tab PO DAILY 04/19/18 04/19/18 Unknown Vitamin] [place]-3 Fatty Acids/Fish Oil [Fish 1 tab PO DAILY 04/19/18 04/19/18 Unknown Oil 1,000 mg Capsule] Allergies Allergy/AdvReac Type Severity Reaction Status Date / Time Penicillins Allergy Unknown RASH Verified 04/19/18 19:02 mupirocin [From Bactroban] Allergy HIVES Verified 04/19/18 19:02 mupirocin calcium Allergy HIVES Verified 04/19/18 19:02 [From Bactroban] varenicline tartrate Allergy RASH Verified 04/19/18 19:02 [From Chantix] Travel Screening - Travel/Exposure Within Last 30 Days Have you traveled within the last 30 days?: No - Travel/Exposure Within Last Year Have you traveled outside the [place] in the last year?: No - Additonal Travel Details Have you been exposed to anyone with a communicable illness?: No - Travel Symptoms Symptom Screening: None Review of Systems Reviewed: No additional complaints except as noted below Constitutional: Reports: As per HPI. Denies: Chills, Fever, Malaise, Night sweats, Weakness, Weight change Eyes: Reports: As per HPI. Denies: Eye discharge, Eye pain, Photophobia, Vision change ENT: Reports: As per HPI. Denies: Congestion, Dental pain, Ear pain, Epistaxis , Hearing loss, Throat pain Respiratory: Reports: As per HPI. Denies: Cough, Dyspnea, Hemoptysis, Stridor, Wheezes Cardiovascular: Reports: As per HPI. Denies: Arrhythmia, Chest pain, Dyspnea on exertion, Edema, Murmurs, Orthopnea, Palpitations, Paroxysmal nocturnal dyspnea, Rheumatic Fever, Syncope Endocrine: Reports: As per HPI. Denies: Fatigue, Heat or cold intolerance, Polydipsia, Polyuria Gastrointestinal: Reports: As per HPI. Denies: Abdominal pain, Constipation, Diarrhea, Hematemesis, Hematochezia, Melena, Nausea, Vomiting Genitourinary: Reports: As per HPI. Denies: Dysuria, Frequency, Hematuria, Incontinence, Retention, Testicular pain, Testicular mass, Urgency Musculoskeletal: Reports: As per HPI. Denies: Arthralgia, Back pain, Gout, Joint swelling, Myalgia, Neck pain Skin: Reports: As per HPI. Denies: Bruising, Change in color, Change in hair/ nails, Lesions, Pruritus, Rash Neurological: Reports: As per HPI. Denies: Abnormal gait, Confusion, Headache, Numbness, Paresthesias, Seizure, Tingling, Tremors, Vertigo, Weakness Psychiatric: Reports: As per HPI. Denies: Anxiety, Auditory hallucinations, Depression, Homicidal thoughts, Suicidal thoughts, Visual hallucinations Hematological/Lymphatic: Reports: As per HPI. Denies: Anemia, Blood Clots, Easy bleeding, Easy bruising, Swollen glands Past Medical History - SOCIAL HISTORY Smoking Status: Current every day smoker Alcohol Use: None Drug Use: None - RESPIRATORY Hx Respiratory Disorders: Yes Hx Asthma: Yes Hx Bronchitis: Yes - CARDIOVASCULAR Hx Cardio Disorders: Yes Hx Abnormal EKG: Yes Hx Cardiac Cath: Yes Hx Edema: Yes (2002) Hx Heart Attack: Yes (2002) Hx Hypertension: No Hx Irregular Heartbeat: Yes (svt; had ablation years ago; dr vieira; still has occasioinal runs svt) Hx Palpitations: Yes Comment:: CAD, stent placed 2002, murmur - NEURO Hx Neuro Disorders: No - GI Hx GI Disorders: Yes Hx Reflux: Yes - Hx Genitourinary Disorders: Yes Hx Prostate Problems: Yes - ENDOCRINE Hx Endocrine Disorders: Yes Hx Diabetes: Yes (DM2) - MUSCULOSKELETAL Hx Musculoskeletal Disorders: No - PSYCH Hx Psych Problems: No - HEMATOLOGY/ONCOLOGY Hx Hematology/Oncology Disorders: No Hx Cancer: Yes (PANCREATIC, PROSTATE) Family Medical History Any Significant Family History?: Yes Hx Alcohol Use: Father Hx Cancer: Father, Brother/Sister Hx Dementia: Brother/Sister Hx Diabetes: Mother Hx Heart Disease: Father, Mother Hx HTN: Mother Hx Resp Disorders: Father Physical Exam - General General Appearance: Alert, Oriented x3, Cooperative, Mild distress - Head Head exam: Normal inspection - Eye Eye exam: Normal appearance, PERRL, EOMI Pupils: Normal accommodation - ENT ENT exam: Normal exam, Mucous membranes moist, Normal external ear exam, Normal orophraynx Ear exam: Normal external inspection. negative: External canal tenderness Nasal Exam: Normal inspection. negative: Discharge, Sinus tenderness Mouth exam: Normal external inspection, Tongue normal Teeth exam: Normal inspection. negative: Dental caries Throat exam: Normal inspection. negative: Tonsillar erythema, Tonsillar exudate - Neck Neck exam: Normal inspection, Full ROM. negative: Tenderness - Respiratory Respiratory exam: Normal lung sounds bilaterally. negative: Respiratory distress - Cardiovascular Cardiovascular Exam: Regular rate, Normal rhythm, Normal heart sounds - GI/Abdominal GI/Abdominal exam: Soft, Normal bowel sounds. negative: Tenderness - Rectal Rectal exam: Deferred - exam: Deferred - Extremities Extremities exam: Normal inspection, Full ROM, Normal capillary refill. negative: Tenderness - Back Back exam: Reports: Normal inspection, Full ROM. Denies: Muscle spasm, Rash noted, Tenderness - Neurological Neurological exam: Alert, CN II-XII intact, Normal gait, Oriented X3 - Psychiatric Psychiatric exam: Normal affect, Normal mood - Skin Skin exam: Dry, Intact, Normal color, Warm Course Vital Signs 04/19/18 04/19/18 18:56 19:47 Temperature 103 F H 102.7 F H Pulse Rate 100 H Pulse Rate [ 105 H Pulse Ox Probe] Respiratory 20 24 Rate Blood Pressure 169/90 Blood Pressure 141/89 [Right Arm] Pulse Ox 94 L 90 L - Reevaluation(s) Reevaluation #1: 04/19/18 22:43 pt feels better. no longer confused. no source identified so abx not started yet Medical Decision Making - Lab Data Result diagrams: 04/19/18 19:18 04/19/18 19:18 Lab Results 04/19/18 04/19/18 04/19/18 Range/Units :18 19:18 19:18 WBC 5.0 (4.2-12.2) K/uL RBC 4.00 L (4.40-5.70) M/uL Hgb 12.9 L (14.0-18.0) gm/dl Hct 39.0 L (42.0-52.0) % MCV 97.5 H (81-97) fl MCH 32.2 (27-33) pg MCHC 33.1 (32-36) g/dl RDW 16.8 H (11.5-14.5) % Plt Count 162 (130-400) K/uL MPV 11.3 H (7.4-10.4) fl Lymphocytes % 4.0 L (16-45) % Monocytes % 0.4 (0-9) % Eosinophils % 0.0 (0-6) % Basophils % 0.0 (0-6) % Sodium 136 (136-145) mmol/L Potassium 4.6 H (3.4-4.5) mmol/L Chloride 96 L (98-107) mmol/L Carbon Dioxide 25.0 (22-29) mmol/L Anion Gap 15.0 (7-16) BUN 18 (8-23) mg/dL Creatinine 0.8 (0.7-1.2) mg/dL Estimated GFR > 60 mL/min Random Glucose 156 H (74-109) mg/dL Calcium 9.5 (8.8-10.2) mg/dL Total Bilirubin 2.70 H (0.2-1.0) mg/dL AST 184 H (10.0-50.0) U/L ALT 118 H (<41) U/L Alkaline Phosphatase 868 H (40-129) U/L Total Protein 7.2 (6.6-8.7) g/dL Albumin 3.9 L (4.0-5.0) g/dL Globulin 3.3 (1.4-4.8) gm/dL Albumin/Globulin Ratio 1.2 (1.1-1.8) Urine Color Yellow Urine Appearance Clear Urine pH 7.0 (5.0-8.0) Ur Specific Mcgrady 1.010 (1.002-1.030) Urine Protein Negative (NEGATIVE) Urine Glucose (UA) >=1000 mg/dl H (NEGATIVE) Urine Ketones Negative (NEGATIVE) Urine Blood Trace-i (NEGATIVE) Urine Nitrite Negative (NEGATIVE) Urine Bilirubin Negative (NEGATIVE) Urine Urobilinogen 0.2 (0.20 - 1.00) E.U./dL Ur Leukocyte Esterase Negative (NEGATIVE) Disposition Disposition: Admit Clinical Impression: Hyperpyrexia, Immunocompromised state Disposition: Still a Patient at [facility] Decision to Admit: Admit from ER Decision to Admit Date: 04/19/18 Decision to Admit Time: 22:47 Forms: Patient Portal Access Quality - Quality Measures Quality Measures: N/A - Blood Pressure Screening Does Patient Have Any of the Following: Active Dx of HTN Blood Pressure Classification: Hypertensive Reading Systolic Measurement: 169 Diastolic Measurement: 90 Screening for High Blood Pressure: Patient Exclusion, Hx of HTN [[id number]]
[2018-04-19 20:06] LABS: ANISOCYTOSIS 1+; PLATELET ESTIMATE NORMAL (NORMAL)
[2018-04-19 20:53] LABS: INFLUENZA A NEGATIVE (NEGATIVE); INFLUENZA B NEGATIVE (NEGATIVE)
[2018-04-19] MEDS ORDERED: 0.9 % SODIUM CHLORIDE 1,000 ML BAG IV ONE (22:46)
[2018-04-19] MEDS ORDERED: ACETAMINOPHEN 500 MG TABLET PO PRN (23:44)
[2018-04-19] MEDS ORDERED: EMPAGLIFLOZIN 25 MG PO SCH (23:44)
[2018-04-20] MEDS: IPRATROPIUM/ALBUTEROL (0.5MG/3MG) NEB INH SCH ×6 (00:26→21:33)
[2018-04-20] MEDS: ASPIRIN 81 MG TABEC PO SCH ×2 (00:49→22:22)
[2018-04-20] MEDS: SIMVASTATIN 20 MG TABLET PO SCH ×2 (00:49→22:23)
[2018-04-20] MEDS: METOPROLOL SUCC 50 MG TABLET PO SCH ×3 (00:49→22:22)
[2018-04-20] MEDS: PANTOPRAZOLE SODIUM 40 MG TABLET PO SCH ×2 (00:49→22:22)
[2018-04-20] MEDS: MONTELUKAST SODIUM 10MG TABLET PO SCH ×2 (00:49→22:22)
[2018-04-20] MEDS: PREGABALIN 50 MG CAPSULE PO SCH ×4 (00:49→22:22)
--- NOTE | 2018-04-20 05:50 | CT SCAN REPORT ---
EXAM: EMERGENCY CT SCAN OF THE HEAD HISTORY: PATIENT AWOKE FROM NAP AND WAS SHAKING AND CONFUSED. PRIOR PROSTATE AND PANCREAS CANCER. TECHNIQUE: Axial CT scan of the head was performed without IV contrast. Comparison: No prior head CT with which to compare. FINDINGS: No definite acute intracranial hemorrhage identified. No focal mass effect or midline shift apparent. Generalized atrophy is present with chronic appearing deep white matter changes, nonspecific, but likely representing some chronic small vessel deep white matter ischemic disease. Allowing for this, no definite acute infarct is seen, however, if there is a strong clinical suspicion of acute infarct, follow-up brain MRI with diffusion weighted imaging would be suggested. If there is a clinical suspicion of subtle intracranial metastases, follow-up MRI with contrast as well would be suggested. Some membrane thickening in the frontal sinuses as well as ethmoids. Minor membrane thickening right maxillary sinus. The left maxillary sinus and sphenoid sinuses appear clear as do the mastoids. IMPRESSION: 1. NO DEFINITE ACUTE INTRACRANIAL HEMORRHAGE OR FOCAL MASS EFFECT EVIDENT. 2. GENERALIZED ATROPHY WITH CHRONIC APPEARING DEEP WHITE MATTER CHANGES. 3. MEMBRANE THICKENING IN SOME OF THE PARANASAL SINUSES DETAILED ABOVE. J[facility]BER: [id number] [facility]
--- NOTE | 2018-04-20 05:54 | RADIOLOGY REPORT ---
EXAM: CHEST, SINGLE VIEW HISTORY: FEVER. TECHNIQUE: A single PA view of the chest was obtained. Comparison: AP portable chest 03/25/17. FINDINGS: The heart size is normal. Calcification and mild torsion of the aorta. There is probably some artifact overlying the upper chest bilaterally creating greater density overlying the upper chest bilaterally compared to the prior study. Allowing for this, no definite acute infiltrate is seen. However , if symptoms persist, follow-up PA and lateral insuring there is no overlying artifact would be suggested. No pleural effusion or pneumothorax evident. The lungs do appear somewhat hyperinflated suggesting underlying COPD. IMPRESSION: 1. SOME [place] DENSITY OVERLYING THE UPPER LUNGS BILATERALLY COMPARED TO THE PRIOR STUDY IS PROBABLY OVERLYING ARTIFACT RATHER THAN INFILTRATE. 2. THE LUNGS AGAIN APPEAR SOMEWHAT HYPERINFLATED WHICH MAY REPRESENT UNDERLYING COPD. 3. CALCIFICATION AND TORSION OF THE AORTA. JOB NUMBER: [id number] [facility]
[2018-04-20] MEDS ORDERED: METFORMIN 500 MG TABLET PO SCH (07:00)
--- NOTE | 2018-04-20 09:36 | History & Physical ---
History of Present Illness - Date of Service Date of Service for History & Physical: 04/20/18 - History of Present Illness Admitting Diagnosis: hyperpyrexia, immunecompromised History of Present Illness: Mr. Najera is 72 y/o male with history of pancreatic cancer s/p whipple and prostate cancer currently undergoing an 8 week course of localized radiation therapy who presents after feeling weak and having a fever. The patient says that he had radiation therapy as scheduled at [facility] and he and his went to lunch. His says that he was really weak and complained of fever and chills. She says that one week prior to his last radiation session he several episodes of diarrhea which eventually subsided but has not had any other illness. The bowel frequency and weakness she says, were expected side- effects from the chemotherapy however in addition to his weakness he became really confused. On arrival to the ED the patient remained altered in mentation and was noted to have a fever of [address] of the head was negative for acute findings. Chest xray showed hyperinflated lungs consistent with his history of COPD and labs showed elevated liver enzymes which have been chronically elevated since Whipple 's and chemotherapy. Vitals in ED: BP 169/90 HR 100 RR 20 Sats 94% RA T 103 Travel Screening - Travel/Exposure Within Last 30 Days Have you traveled within the last 30 days?: No - Travel/Exposure Within Last Year Have you traveled outside the [place] in the last year?: No - Additonal Travel Details Have you been exposed to anyone with a communicable illness?: Yes Exposure Details:: reports a family member exposed to H1N1 but not sure if having symptoms - Travel Symptoms Symptom Screening: Fever (Subjective), Weakness, Fatigue, Diarrhea, Lack of Appetite, Chills Review of Systems Constitutional: Reports: As per HPI. Denies: Chills, Fever, Malaise, Night sweats, Weakness, Weight change Eyes: Reports: As per HPI. Denies: Eye discharge, Eye pain, Photophobia, Vision change ENT: Reports: As per HPI. Denies: Congestion, Dental pain, Ear pain, Epistaxis , Hearing loss, Throat pain Respiratory: Reports: As per HPI. Denies: Cough, Dyspnea, Hemoptysis, Stridor, Wheezes Cardiovascular: Reports: As per HPI. Denies: Arrhythmia, Chest pain, Dyspnea on exertion, Edema, Murmurs, Orthopnea, Palpitations, Paroxysmal nocturnal dyspnea, Rheumatic Fever, Syncope Endocrine: Reports: As per HPI. Denies: Fatigue, Heat or cold intolerance, Polydipsia, Polyuria Gastrointestinal: Reports: As per HPI. Denies: Abdominal pain, Constipation, Diarrhea, Hematemesis, Hematochezia, Melena, Nausea, Vomiting Genitourinary: Reports: As per HPI. Denies: Dysuria, Frequency, Hematuria, Incontinence, Retention, Testicular pain, Testicular mass, Urgency Musculoskeletal: Reports: As per HPI. Denies: Arthralgia, Back pain, Gout, Joint swelling, Myalgia, Neck pain Skin: Reports: As per HPI. Denies: Bruising, Change in color, Change in hair/ nails, Lesions, Pruritus, Rash Neurological: Reports: As per HPI. Denies: Abnormal gait, Confusion, Headache, Numbness, Paresthesias, Seizure, Tingling, Tremors, Vertigo, Weakness Psychiatric: Reports: As per HPI. Denies: Anxiety, Auditory hallucinations, Depression, Homicidal thoughts, Suicidal thoughts, Visual hallucinations Hematological/Lymphatic: Reports: As per HPI. Denies: Anemia, Blood Clots, Easy bleeding, Easy bruising, Swollen glands Past Medical History - SOCIAL HISTORY Smoking Status: Current every day smoker Alcohol Use: None Drug Use: None - RESPIRATORY Hx Respiratory Disorders: Yes Hx Asthma: Yes Hx Bronchitis: Yes - CARDIOVASCULAR Hx Cardio Disorders: Yes Hx Abnormal EKG: Yes Hx Cardiac Cath: Yes Hx Edema: Yes (2002) Hx Heart Attack: Yes (2002) Hx Hypertension: No Hx Irregular Heartbeat: Yes (svt; had ablation years ago; dr vieira; still has occasioinal runs svt) Hx Palpitations: Yes Comment:: CAD, stent placed 2002, murmur - NEURO Hx Neuro Disorders: No - GI Hx GI Disorders: Yes Hx Reflux: Yes - Hx Genitourinary Disorders: Yes Hx Prostate Problems: Yes - ENDOCRINE Hx Endocrine Disorders: Yes Hx Diabetes: Yes (DM2) Hx Thyroid Disease: No - MUSCULOSKELETAL Hx Musculoskeletal Disorders: No - PSYCH Hx Psych Problems: No - HEMATOLOGY/ONCOLOGY Hx Hematology/Oncology Disorders: No Hx Cancer: Yes (PANCREATIC, PROSTATE) Hx Radiation Therapy: Yes (currently receiving for prostrate cancer) Family Medical History Any Significant Family History?: Yes Hx Alcohol Use: Father Hx Cancer: Father, Brother/Sister Hx Dementia: Brother/Sister Hx Diabetes: Mother Hx Heart Disease: Father, Mother Hx HTN: Mother Hx Resp Disorders: Father H&P Meds/Allergies - Allergies Allergies: Allergies Allergy/AdvReac Type Severity Reaction Status Date / Time Penicillins Allergy Unknown RASH Verified 04/19/18 19:02 mupirocin [From Bactroban] Allergy HIVES Verified 04/19/18 19:02 mupirocin calcium Allergy HIVES Verified 04/19/18 19:02 [From Bactroban] varenicline tartrate Allergy RASH Verified 04/19/18 19:02 [From Chantix] - Home Medications Home Medications Medication Instructions Recorded Confirmed Last Taken Multivitamin [Daily Multiple 1 tab PO DAILY 04/19/18 04/19/18 Unknown Vitamin] [place]-3 Fatty Acids/Fish Oil [Fish 1 tab PO DAILY 04/19/18 04/19/18 Unknown Oil 1,000 mg Capsule] Jkrgx-H-Zmluomyxtfpax [Beano] 150 unit PO TIDAC 04/20/18 04/20/18 Unknown Metformin HCl 1,000 mg PO BIDWM 04/20/18 04/20/18 Unknown Montelukast Sodium 10 mg PO QHS 04/20/18 04/20/18 Unknown Simethicone [Gas-X] 125 mg PO TIDPC 04/20/18 04/20/18 Unknown - Active Medications Active Medications: Current Medications Acetaminophen (Tylenol 500mg Tab) 1,000 mg PO Q6H PRN PRN Reason: PAIN - MILD(1-4)/FEVER Albuterol/Ipratropium (Duoneb) 3 ml INH RESP.QID [facility] Last Admin: 04/20/18 05:38 Dose: 3 ml Aspirin (Ecotrin (Ec)) 81 mg PO QHS [facility] Last Admin: 04/20/18 00:49 Dose: 81 mg Metformin HCl (Glucophage Ir) 1,000 mg PO BIDAC [facility] Last Admin: 04/20/18 08:35 Dose: 1,000 mg Metoprolol Succinate (Toprol Xl) 50 mg PO BID [facility] Last Admin: 04/20/18 00:49 Dose: 50 mg Montelukast Sodium (Singulair) 10 mg PO QHS [facility] Last Admin: 04/20/18 00:49 Dose: 10 mg Non-Formulary Medication (Lipase/Protease/Amylase [Shauna Dr 36,000 Units Capsule ]) 1 each PO DAILY [facility] Non-Formulary Medication (Empagliflozin [Jardiance]) 25 mg PO QHS [facility] Pantoprazole Sodium (Protonix) 40 mg PO QHS [facility] Last Admin: 04/20/18 00:49 Dose: 40 mg Pregabalin (Lyrica) 50 mg PO TID [facility] Last Admin: 04/20/18 00:49 Dose: 50 mg Simvastatin (Zocor) 20 mg PO QHS [facility] Last Admin: 04/20/18 00:49 Dose: 20 mg Physical Exam - Vital Signs Vital Signs: Vital Signs - Last 24 Hrs Temp Pulse Pulse Resp BP BP Pulse Ox 04/20/18 06:00 97.8 F 58 L 16 109/58 96 04/20/18 05:38 68 20 96 04/20/18 02:00 97.4 F L 72 16 107/64 94 L 04/20/18 00:27 80 20 93 L 04/19/18 23:30 98.3 F 84 16 87/52 91 L 04/19/18 22:32 99.0 F 89 24 97/59 90 L 04/19/18 21:03 100.3 F H 93 H 24 98/67 90 L 04/19/18 19:47 102.7 F H 105 H 24 141/89 90 L 04/19/18 18:56 103 F H 100 H 20 169/90 94 L - General General Appearance: Alert, Oriented x3, Cooperative, Mild distress Limitations: No limitations - Head Head exam: Normal inspection - Eye Eye exam: Normal appearance, PERRL, EOMI Pupils: Normal accommodation - ENT ENT exam: Normal exam, Mucous membranes moist, Normal external ear exam, Normal orophraynx Ear exam: Normal external inspection. negative: External canal tenderness Nasal Exam: Normal inspection. negative: Discharge, Sinus tenderness Mouth exam: Normal external inspection, Tongue normal Teeth exam: Normal inspection. negative: Dental caries Throat exam: Normal inspection. negative: Tonsillar erythema, Tonsillar exudate - Neck Neck exam: Normal inspection, Full ROM. negative: Tenderness - Respiratory Respiratory exam: Normal lung sounds bilaterally. negative: Respiratory distress - Cardiovascular Cardiovascular Exam: Regular rate, Normal rhythm, Normal heart sounds Peripheral Pulses: 3+: Radial (R), Radial (L), Dorsalis Pedis (R), Dorsalis Pedis (L) - GI/Abdominal GI/Abdominal exam: Soft, Normal bowel sounds. negative: Tenderness - Rectal Rectal exam: Deferred - exam: Deferred - Extremities Extremities exam: Normal inspection, Full ROM, Normal capillary refill. negative: Tenderness - Back Back exam: Reports: Normal inspection, Full ROM. Denies: Muscle spasm, Rash noted, Tenderness - Neurological Neurological exam: Alert, CN II-XII intact, Normal gait, Oriented X3 - Psychiatric Psychiatric exam: Normal affect, Normal mood - Skin Skin exam: Dry, Intact, Normal color, Warm Results - Labs Result Diagrams: 04/19/18 19:18 04/19/18 19:18 Labs Last 24 Hours: Laboratory Results - last 24 hr 04/19/18 04/19/18 04/19/18 19:18 19:18 19:18 WBC 5.0 RBC 4.00 L Hgb 12.9 L Hct 39.0 L MCV 97.5 H MCH 32.2 MCHC 33.1 RDW 16.8 H Plt Count 162 MPV 11.3 H Neutrophils % 83.0 H Band Neutrophils % 12.0 H Lymphocytes % 4.0 L Monocytes % 0.4 Eosinophils % 0.0 Basophils % 0.0 Lymphocytes 5.0 L Monocytes Not Reportable Platelet Estimate Normal Anisocytosis 1+ Sodium 136 Potassium 4.6 H Chloride 96 L Carbon Dioxide 25.0 Anion Gap 15.0 BUN 18 Creatinine 0.8 Estimated GFR > 60 POC Glucose Random Glucose 156 H Lactic Acid Calcium 9.5 Total Bilirubin 2.70 H AST 184 H ALT 118 H Alkaline Phosphatase 868 H Total Protein 7.2 Albumin 3.9 L Globulin 3.3 Albumin/Globulin Ratio 1.2 Urine Color Yellow Urine Appearance Clear Urine pH 7.0 Ur Specific [place] 1.010 Urine Protein Negative Urine Glucose (UA) >=1000 mg/dl H Urine Ketones Negative Urine Blood Trace-i Urine Nitrite Negative Urine Bilirubin Negative Urine Urobilinogen 0.2 Ur Leukocyte Esterase Negative Influenza Type A Ag Influenza Type B Ag 04/19/18 04/19/18 04/20/18 19:42 20:28 08:32 WBC RBC Hgb Hct MCV MCH MCHC RDW Plt Count MPV Neutrophils % Band Neutrophils % Lymphocytes % Monocytes % Eosinophils % Basophils % Lymphocytes Monocytes Platelet Estimate Anisocytosis Sodium Potassium Chloride Carbon Dioxide Anion Gap BUN Creatinine Estimated GFR POC Glucose 160 H Random Glucose Lactic Acid 1.9 Calcium Total Bilirubin AST ALT Alkaline Phosphatase Total Protein Albumin Globulin Albumin/Globulin Ratio Urine Color Urine Appearance Urine pH Ur Specific [place] Urine Protein Urine Glucose (UA) Urine Ketones Urine Blood Urine Nitrite Urine Bilirubin Urine Urobilinogen Ur Leukocyte Esterase Influenza Type A Ag Negative Influenza Type B Ag Negative VTE H&P Assessment - Risk for VTE Risk for VTE: Yes Risk Level: High Risk Assessment Date: 04/20/18 Risk Assessment Time: 23:44 VTE Orders Placed or Will Be Placed: Yes Plan - Detailed Diagnosis and Plan (1) Hyperpyrexia Current Visit: Yes Status: Acute Base Code: R50.9 - FEVER, UNSPECIFIED Comment: 04/20/18: - Temp 103 --> 102-->100-->99 - Labs: UA negative, CBC w/ diff no pancytopenia, ANC 4 - No indication for prophylactic abx based on ANC levels. - Blood cultures pending - Monitor temp for spikes over the next 24hrs. - Tylenol 1000mg Q6H prn for fever/pain (2) History of pancreatic cancer Current Visit: Yes Status: Acute Base Code: Z85.07 - PERSONAL HISTORY OF MALIGNANT NEOPLASM OF PANCREAS Comment: 04/20/18: - S/P Whipples and Chemotherapy. - Pt has continued surveillance with serial CTs. Followed by [facility] [place] [facility] Oncology. (3) Prostate cancer Current Visit: Yes Status: Acute Base Code: C61 - MALIGNANT NEOPLASM OF PROSTATE Comment: 04/20/18: - s/p chemotherapy with - currently undergoing localized radiation for 8 weeks. - last session yesterday afternoon (4) Immunocompromised state Current Visit: Yes Status: Acute Base Code: D84.9 - IMMUNODEFICIENCY, UNSPECIFIED (5) DVT prophylaxis Current Visit: Yes Status: Acute Base Code: [id number] - Comment: 04/20/18: - high risk due to active treatment for prostate cancer. - Lovenox 40mg Sq QD
[2018-04-20] MEDS ORDERED: EMPAGLIFLOZIN 25 MG PO SCH (10:00)
[2018-04-20] MEDS ORDERED: Non-Formulary MISC (Blood Sugar Diagnostic [Test Strips] 1 EACH) MC SCH (10:00)
[2018-04-20] MEDS ORDERED: IPRATROPIUM/ALBUTEROL 4 GM INH INH SCH (10:00)
[2018-04-20] MEDS: AMYLASE PO SCH ×2 (12:22→17:16)
[2018-04-20] MEDS: [UNRECOGNIZED DRUG - OTHER] PO SCH ×2 (12:22→17:16)
[2018-04-20] MEDS: PROTEASE PO SCH ×2 (12:22→17:16)
[2018-04-20] MEDS: LIPASE PO SCH ×2 (12:22→17:16)
[2018-04-20] MEDS: SIMETHICONE 125 MG PO SCH ×2 (12:28→18:21)
[2018-04-20] MEDS ORDERED: HUMULIN R 100 UNIT/ML VIAL SQ PRN (13:15)
[2018-04-20] MEDS: METFORMIN 500 MG TABLET PO SCH (17:16)
[2018-04-20] MEDS: HUMULIN R 100 UNIT/ML VIAL SQ SCH ×2 (18:17→23:17)
[2018-04-21] MEDS: IPRATROPIUM/ALBUTEROL (0.5MG/3MG) NEB INH SCH (06:06)
[2018-04-21 06:17] LABS: HEMATOCRIT 31.3 % (42.0-52.0); HEMOGLOBIN 10.2 gm/dl (14.0-18.0); MEAN CELL VOLUME 97.8 fl (81-97); MEAN CORPUSCULAR HGB CONC 32.6 g/dl (32-36); MEAN PLATELET VOLUME 11.7 fl (7.4-10.4); PLATELET COUNT 123 K/uL (130-400); RED CELL DISTRIBUTION WIDTH 17.8 % (11.5-14.5); WHITE BLOOD COUNT W/O DIFF 7.9 K/uL (4.2-12.2)
[2018-04-21 06:25] LABS: MEAN CORPUSCULAR HEMOGLOBIN 31.8 pg (27-33)
[2018-04-21 06:29] LABS: BLOOD UREA NITROGEN 23 mg/dL (8-23); CREATININE 0.7 mg/dL (0.7-1.2); EST GLOMERULAR FILTRATION RATE > 60 mL/min; GLUCOSE,RANDOM 99 mg/dL (74-109)
[2018-04-21 07:11] LABS: ANISOCYTOSIS 1+; PLATELET ESTIMATE NORMAL (NORMAL)
--- NOTE | 2018-04-21 07:45 | Discharge Summary ---
Providers Discharge Summary Date: 04/21/18 Date of admission: 04/19/18 23:22 Attending physician: ZANDER BAKER Primary care physician: ZANDER BAKER Physical Exam - Vital Signs Vital Signs: Vital Signs - Last 24 Hrs Temp Pulse Pulse Resp BP BP Pulse Ox 04/21/18 06:06 59 L 16 94 L 04/21/18 06:00 98.2 F 60 16 109/59 94 L 04/21/18 02:00 98.4 F 64 16 86/47 95 04/20/18 22:00 98.0 F 83 17 90/50 94 L 04/20/18 21:33 81 20 96 04/20/18 21:00 83 17 04/20/18 16:18 70 16 97 04/20/18 15:06 97.8 F 109/58 04/20/18 14:00 98.1 F 62 14 83/44 99 04/20/18 11:59 94 H 16 93 L - General General Appearance: Alert, Oriented x3, Cooperative, Mild distress Limitations: No limitations - Head Head exam: Normal inspection - Eye Eye exam: Normal appearance, PERRL, EOMI Pupils: Normal accommodation - ENT ENT exam: Normal exam, Mucous membranes moist, Normal external ear exam, Normal orophraynx Ear exam: Normal external inspection. negative: External canal tenderness Nasal Exam: Normal inspection. negative: Discharge, Sinus tenderness Mouth exam: Normal external inspection, Tongue normal Teeth exam: Normal inspection. negative: Dental caries Throat exam: Normal inspection. negative: Tonsillar erythema, Tonsillar exudate - Neck Neck exam: Normal inspection, Full ROM. negative: Tenderness - Respiratory Respiratory exam: Normal lung sounds bilaterally. negative: Respiratory distress - Cardiovascular Cardiovascular Exam: Regular rate, Normal rhythm, Normal heart sounds Peripheral Pulses: 3+: Radial (R), Radial (L), Dorsalis Pedis (R), Dorsalis Pedis (L) - GI/Abdominal GI/Abdominal exam: Soft, Normal bowel sounds. negative: Tenderness - Rectal Rectal exam: Deferred - exam: Deferred - Extremities Extremities exam: Normal inspection, Full ROM, Normal capillary refill. negative: Tenderness - Back Back exam: Reports: Normal inspection, Full ROM. Denies: Muscle spasm, Rash noted, Tenderness - Neurological Neurological exam: Alert, CN II-XII intact, Normal gait, Oriented X3 - Psychiatric Psychiatric exam: Normal affect, Normal mood - Skin Skin exam: Dry, Intact, Normal color, Warm Hospitalization - Hospitalization Admission Diagnosis: hyperpyrexia, immunecompromised - Problem List/Discharge Diagnosis (1) Hyperpyrexia Status: Acute Base Code: R50.9 - FEVER, UNSPECIFIED Comment: 04/21/18: - Temp 103 --> 102-->100-->99 - Labs: UA negative, CBC w/ diff no pancytopenia, ANC 4 - No indication for prophylactic abx based on ANC levels. - Blood cultures pending - Monitor temp for spikes over the next 24hrs. - Tylenol 1000mg Q6H prn for fever/pain (2) History of pancreatic cancer Status: Acute Base Code: Z85.07 - PERSONAL HISTORY OF MALIGNANT NEOPLASM OF PANCREAS Comment: 04/20/18: - S/P Whipples and Chemotherapy. - Pt has continued surveillance with serial CTs. Followed by [facility] [place]. (3) Prostate cancer Status: Acute Base Code: C61 - MALIGNANT NEOPLASM OF PROSTATE Comment: 04/20/18: - s/p chemotherapy with - currently undergoing localized radiation for 8 weeks. - last session yesterday afternoon (4) Immunocompromised state Status: Acute Base Code: D84.9 - IMMUNODEFICIENCY, UNSPECIFIED (5) DVT prophylaxis Status: Acute Base Code: [id number] - Comment: 04/20/18: - high risk due to active treatment for prostate cancer. - Lovenox 40mg Sq QD - Hospitalization Course Disposition: Home, Self-Care Hospital Course: Mr. Maxwell is 72 y/o male with history of pancreatic cancer s/p whipple and prostate cancer currently undergoing an 8 week course of localized radiation therapy who presents after feeling weak and having a fever. The patient says that he had radiation therapy as scheduled at [facility] and he and his went to lunch. His says that he was really weak and complained of fever and chills. She says that one week prior to his last radiation session he several episodes of diarrhea which eventually subsided but has not had any other illness. The bowel frequency and weakness she says, were expected side- effects from the chemotherapy however in addition to his weakness he became really confused. On arrival to the ED the patient remained altered in mentation and was noted to have a fever [place] [address] of the head was negative for acute findings. Chest xray showed hyperinflated lungs consistent with his history of COPD and labs showed elevated liver enzymes which have been chronically elevated since Whipple 's and chemotherapy. 04/21: The patient is afebrile since yesterday. Vitals in ED: BP 169/90 HR 100 RR 20 Sats 94% RA T 103 Procedures: Imaging and X-Rays 04/19/18 19:30 CHEST 1 VIEW [RAD] Stat HEAD WO CONTRAST [CT] Stat Abnormal Labs: Abnormal Lab Results 04/19/18 04/19/18 04/19/18 Range/Units 19:18 19:18 19:18 RBC 4.00 L (4.40-5.70) M/uL Hgb 12.9 L (14.0-18.0) gm/dl Hct 39.0 L (42.0-52.0) % MCV 97.5 H (81-97) fl RDW 16.8 H (11.5-14.5) % Plt Count (130-400) K/uL MPV 11.3 H (7.4-10.4) fl Neutrophils % 83.0 H (47-80) % Band Neutrophils % 12.0 H (0-5) % Lymphocytes % 4.0 L (16-45) % Lymphocytes 5.0 L (16-45) % Potassium 4.6 H (3.4-4.5) mmol/L Chloride 96 L (98-107) mmol/L POC Glucose (70-110) mg/dL Random Glucose 156 H (74-109) mg/dL Calcium (8.8-10.2) mg/dL Total Bilirubin 2.70 H (0.2-1.0) mg/dL AST 184 H (10.0-50.0) U/L ALT 118 H (<41) U/L Alkaline Phosphatase 868 H (40-129) U/L Albumin 3.9 L (4.0-5.0) g/dL Urine Glucose (UA) >=1000 mg/dl H (NEGATIVE) 04/20/18 04/20/18 04/20/18 Range/Units 08:32 12:03 17:00 RBC (4.40-5.70) M/uL Hgb (14.0-18.0) gm/dl Hct (42.0-52.0) % MCV (81-97) fl RDW (11.5-14.5) % Plt Count (130-400) K/uL MPV (7.4-10.4) fl Neutrophils % (47-80) % Band Neutrophils % (0-5) % Lymphocytes % (16-45) % Lymphocytes (16-45) % Potassium (3.4-4.5) mmol/L Chloride (98-107) mmol/L POC Glucose 160 H 279 H 158 H (70-110) mg/dL Random Glucose (74-109) mg/dL Calcium (8.8-10.2) mg/dL Total Bilirubin (0.2-1.0) mg/dL AST (10.0-50.0) U/L ALT (<41) U/L Alkaline Phosphatase (40-129) U/L Albumin (4.0-5.0) g/dL Urine Glucose (UA) (NEGATIVE) 04/20/18 04/21/18 04/21/18 Range/Units 23:16 05:40 05:40 RBC 3.20 L (4.40-5.70) M/uL Hgb 10.2 L (14.0-18.0) gm/dl Hct 31.3 L (42.0-52.0) % MCV 97.8 H (81-97) fl RDW 17.8 H (11.5-14.5) % Plt Count 123 L (130-400) K/uL MPV 11.7 H (7.4-10.4) fl Neutrophils % (47-80) % Band Neutrophils % 11.0 H (0-5) % Lymphocytes % (16-45) % Lymphocytes 9.0 L (16-45) % Potassium (3.4-4.5) mmol/L Chloride (98-107) mmol/L POC Glucose 215 H (70-110) mg/dL Random Glucose (74-109) mg/dL Calcium 8.7 L (8.8-10.2) mg/dL Total Bilirubin (0.2-1.0) mg/dL AST (10.0-50.0) U/L ALT (<41) U/L Alkaline Phosphatase (40-129) U/L Albumin (4.0-5.0) g/dL Urine Glucose (UA) (NEGATIVE) Condition at Discharge: (1) Good Discharge Medications - Discharge Medications Home Medications: Ambulatory Orders Aspirin [Aspirin EC] 81 mg PO QHS 03/10/15 [Last Taken 02/22/17] Lipase/Protease/Amylase [Shauna Th[place]odeaux 36,000 Units Capsule] 1 each PO TIDAC [Last Taken Unknown] Multivitamin [Daily Multiple Vitamin] 1 tab PO DAILY 04/19/18 [Last Taken Unknown] [place]-3 Fatty Acids/Fish Oil [Fish Oil 1,000 mg Capsule] 1 tab PO DAILY [Last Taken Unknown] Wbdlo-V-Oexwpdlbieqij [Beano] 150 unit PO TIDAC 04/20/18 [Last Taken Unknown] Metformin HCl 1,000 mg PO BIDWM 04/20/18 [Last Taken Unknown] Montelukast Sodium 10 mg PO QHS 04/20/18 [Last Taken Unknown] Simethicone [Gas-X] 125 mg PO TIDPC 04/20/18 [Last Taken Unknown] Discharge Plan - Discharge Instructions Diet at Discharge: Diabetic Diet Instructions: Fever in Adults (GEN) Additional Instructions: Please continue taking your medications as prescribed. Follow up with Radiation On[facility] at [facility] on Monday for continuing therapy. Follow up with Dr. Baker as scheduled on May 04 at [facility]. If you have return of symptoms please return to the ED. Quality Measures - Quality Measures Quality Measures: Advance Directives, Documentation of Current Medications in Medical Record, Elder Maltreatment Screen and Follow-Up Plan, Screening for High Blood Pressure and F/U Documented - Current Medications Quality Measure: Measure #130: Documentation of Current Medications Documentation of Current Medications: <Current Medications Documented/Reviewed> [[id number]] - Blood Pressure Screening Quality Measure: Screening for High Blood Pressure and Follow-Up Documented Does Patient Have Any of the Following: No Blood Pressure Classification: Normal BP Reading Systolic Measurement: 109 Diastolic Measurement: 58 Screening for High Blood Pressure: < Normal BP, F/U Not Required > [G8783] - Advance Directives Quality Measure: Measure #47: Care Plan Advance Directives Established: No Advance Directives Information Provided To Patient: No Advance Directives on File: No Living Will: Yes Power of Plate Glass Polisher: Yes Power of Plate Glass Polisher Name: JASMIN MAXWELL () Advance Care Planning: <Care Plan/Decision Maker Documented; Discussed & Documented> [[id number]] - Elder Abuse Suspicion Index Screening: Elder Abuse Suspicion Index Screening Rely on people for bathing, dressing, shopping, banking, etc: Yes Prevented from getting food, clothes, medication, etc: No Made to feel shamed or threatened by someone: No Forced to sign papers or use money against will: No Feel afraid, touched in ways not wanted or hurt physically: No Poor eye contact, withdrawn, malnourished, cuts or bruises: No Screening Result: Negative result EASI Reference Information: Benny RUANO, Tyree C, Benson D, Dina Livingston.Development and validation of a tool to assist physicians identification of elder abuse: The Elder Abuse Suspicion Index (EASI ). Journal of Elder Abuse and Neglect, 2008; 20 (3): 276-300. - Elder Maltreatment Screen Quality Measures: Elder Maltreatment Screen and Follow-Up Plan Elder Maltreatment Screen: <Negative, No Follow-Up Plan Required> [[id number]]
[2018-04-21] MEDS: HUMULIN R 100 UNIT/ML VIAL SQ SCH (09:00)
[2018-04-21] MEDS: PROTEASE PO SCH (09:01)
[2018-04-21] MEDS: AMYLASE PO SCH (09:01)
[2018-04-21] MEDS: LIPASE PO SCH (09:01)
[2018-04-21] MEDS: METFORMIN 500 MG TABLET PO SCH (09:01)
[2018-04-21] MEDS: SIMETHICONE 125 MG PO SCH (09:02)
[2018-04-21] MEDS: [UNRECOGNIZED DRUG - OTHER] PO SCH (09:02)
[2018-04-21] MEDS ORDERED: ENOXAPARIN 40 MG/0.4 ML SYR SQ SCH (10:00)
== END 2018-04-21 11:17 | disposition home or self-care (01) ==
LOC: ER 18:54 → MEDSURG 23:22
PROVIDERS: ADMIT Internal Medicine; ATTEND Internal Medicine
DX: R50.9 Fever, unspecified (principal); Z85.07 Personal history of malignant neoplasm of pancreas; C61 Malignant neoplasm of prostate; D84.9 Immunodeficiency, unspecified; I10 Essential (primary) hypertension
CPT/HCPCS: 99285 ×2; 83605; 80048; 80053; 36416 ×2; 82948 ×2; 81003; 87400; 85027 ×2; 71045; 70450; 94640 ×3; 94762 ×2; G0378 ×3; J3490; 99217; 99220; J7030

== ENCOUNTER 2018-09-05 19:05 | Emergency (ER) | payer MEDICARE, BC ==
--- NOTE | 2018-09-05 19:17 | Emergency Department Record ---
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 He finished 6 months chemo last November, and 3 months radiation this past May and has been declared in remission. His last interval CT scan was this past June and "he was clear." Tonight he is here for fever to 102 at home, a sore throat which began yesterday, a chronic brown productive cough with COPD, epigastric pain non- radiating, and back and leg(thigh) aching. He has been sleeping more the past 24 hours, and not taking p.o. He urinated once just prior to arrival. MD Complaint: Fever, Malaise, Weakness - Related Data Home Medications Medication Instructions Recorded Confirmed Last Taken Ungby-C-Aeggkvzgmusiy [Beano] 1 each PO ASDIR PRN 09/05/18 09/05/18 Unknown Montelukast Sodium [Singulair] 10 mg PO QHS 09/05/18 09/05/18 09/05/18 Simethicone 125 mg PO ASDIR PRN 09/05/18 09/05/18 09/05/18 Tadalafil [Cialis] 20 mg PO ASDIR PRN 09/05/18 09/05/18 Unknown Allergies Allergy/AdvReac Type Severity Reaction Status Date / Time Penicillins Allergy Unknown RASH Verified 09/05/18 19:18 mupirocin [From Bactroban] Allergy HIVES Verified 09/05/18 19:18 mupirocin calcium Allergy HIVES Verified 09/05/18 19:18 [From Bactroban] varenicline tartrate Allergy RASH Verified 09/05/18 19:18 [From Chantix] Review of Systems Reviewed: No additional complaints except as noted below Constitutional: Reports: As per HPI. Denies: Chills, Fever, Malaise, Night sweats, Weakness, Weight change Eyes: Reports: As per HPI. Denies: Eye discharge, Eye pain, Photophobia, Vision change ENT: Reports: As per HPI. Denies: Congestion, Dental pain, Ear pain, Epistaxis, Hearing loss, Throat pain Respiratory: Reports: As per HPI. Denies: Cough, Dyspnea, Hemoptysis, Stridor, Wheezes Cardiovascular: Reports: As per HPI. Denies: Arrhythmia, Chest pain, Dyspnea on exertion, Edema, Murmurs, Orthopnea, Palpitations, Paroxysmal nocturnal dyspnea, Rheumatic Fever, Syncope Endocrine: Reports: As per HPI. Denies: Fatigue, Heat or cold intolerance, Polydipsia, Polyuria Gastrointestinal: Reports: As per HPI. Denies: Abdominal pain, Constipation, Diarrhea, Hematemesis, Hematochezia, Melena, Nausea, Vomiting Genitourinary: Reports: As per HPI. Denies: Dysuria, Frequency, Hematuria, Incontinence, Retention, Testicular pain, Testicular mass, Urgency Musculoskeletal: Reports: As per HPI. Denies: Arthralgia, Back pain, Gout, Joint swelling, Myalgia, Neck pain Skin: Reports: As per HPI. Denies: Bruising, Change in color, Change in hair/nails, Lesions, Pruritus, Rash Neurological: Reports: As per HPI. Denies: Abnormal gait, Confusion, Headache, Numbness, Paresthesias, Seizure, Tingling, Tremors, Vertigo, Weakness Psychiatric: Reports: As per HPI. Denies: Anxiety, Auditory hallucinations, Depression, Homicidal thoughts, Suicidal thoughts, Visual hallucinations Hematological/Lymphatic: Reports: As per HPI. Denies: Anemia, Blood Clots, Easy bleeding, Easy bruising, Swollen glands Past Medical History - SOCIAL HISTORY Smoking Status: Current every day smoker Drug Use: None - RESPIRATORY Hx Respiratory Disorders: Yes Hx Asthma: Yes Hx Bronchitis: Yes - CARDIOVASCULAR Hx Cardio Disorders: Yes Hx Abnormal EKG: Yes Hx Cardiac Cath: Yes Hx Edema: Yes (2002) Hx Heart Attack: Yes (2002) Hx Hypertension: No Hx Irregular Heartbeat: Yes (svt; had ablation years ago; dr vieira; still has occasioinal runs svt) Hx Palpitations: Yes Comment:: CAD, stent placed 2002, murmur - NEURO Hx Neuro Disorders: No - GI Hx GI Disorders: Yes Hx Reflux: Yes - Hx Genitourinary Disorders: Yes Hx Prostate Problems: Yes - ENDOCRINE Hx Endocrine Disorders: Yes Hx Diabetes: Yes (DM2) Hx Thyroid Disease: No - MUSCULOSKELETAL Hx Musculoskeletal Disorders: No - PSYCH Hx Psych Problems: No - HEMATOLOGY/ONCOLOGY Hx Hematology/Oncology Disorders: No Hx Cancer: Yes (PANCREATIC, PROSTATE) Hx Radiation Therapy: Yes (currently receiving for prostrate cancer) Family Medical History Hx Alcohol Use: Father Hx Cancer: Father, Brother/Sister Hx Dementia: Brother/Sister Hx Diabetes: Mother Hx Heart Disease: Father, Mother Hx HTN: Mother Hx Resp Disorders: Father Physical Exam - General General Appearance: Alert, Oriented x3, Cooperative, Mild distress (cachectic male, wearing mask over nose and mouth, poor historian) - Head Head exam: Normal inspection - Eye Eye exam: Normal appearance, PERRL Pupils: Normal accommodation - ENT ENT exam: Normal exam, Mucous membranes moist, Normal external ear exam, Normal orophraynx, TM's normal bilaterally Ear exam: Normal external inspection. negative: External canal tenderness Nasal Exam: Normal inspection. negative: Discharge, Sinus tenderness Mouth exam: Normal external inspection, Tongue normal Teeth exam: Normal inspection. negative: Dental caries Throat exam: Normal inspection. negative: Tonsillar erythema, Tonsillar exudate - Neck Neck exam: Normal inspection, Full ROM. negative: Lymphadenopathy, Meningismus, Tenderness - Respiratory Respiratory exam: Normal lung sounds bilaterally, Respiratory distress (mild tachypnea), Wheezes (expiratory). negative: Accessory muscle use, Chest wall tenderness, Decreased breath sounds, Rales, Stridor - Cardiovascular Cardiovascular Exam: Normal rhythm, Normal heart sounds, Tachycardia - GI/Abdominal GI/Abdominal exam: Soft, Normal bowel sounds, Tenderness (epigastric tenderness on palpation). negative: Mass, Rebound, Rigid - Rectal Rectal exam: Deferred - exam: Deferred - Extremities Extremities exam: Normal inspection, Full ROM, Normal capillary refill. negative: Calf tenderness, Pedal edema, Tenderness - Back Back exam: Reports: Normal inspection, Full ROM. Denies: CVA tenderness (R), CVA tenderness (L), Muscle spasm, Rash noted, Tenderness - Neurological Neurological exam: Alert, CN II-XII intact, Normal gait, Oriented X3, Reflexes normal. negative: Motor sensory deficit - Psychiatric Psychiatric exam: Normal affect, Normal mood - Skin Skin exam: Dry, Intact, Normal color, Warm Course - Reevaluation(s) Reevaluation #1: Patient still unable to urinate after first liter NS nearly complete. He is afebrile now but doesn't feel well, IV toradol ordered. 09/05/18 21:29 Reevaluation #2: Discussed with about his penicillin allergy. She states it was years ago and was only a rash. He has no known allergy to cephaloxporins. 09/05/18 21:39 Reevaluation #3: 09/05/18 22:27 Maycol Loyd who requests patient be transferred to medicine service at [facility] with Dr. Loyd consulting. MAYCOL patient who agrees but does NOT want an ambulance. MAYCOL Arreola who accepts patient in transfer. 09/05/18 22:51 Medical Decision Making - Management Options MDM Management: Additional Work-up Planned (e.g. ADM/Transfer/OP Study) - Data Complexity MDM Data: Labs Ordered and/or Reviewed, X-Ray Ordered and/or Reviewed (ABD/PELVIS CT SCAN: 13 by 17 mm stone in the CBD causing moderate intrahepatic biliary ductal dilatation. There is post ope changes from Wihipple procedure; no Aneurysm, dissection or PE, evidence of chronic bronchitis seen. Per radiolo gist.) - Lab Data Result diagrams: 09/05/18 19:45 09/05/18 19:45 Disposition Disposition: Transfer Clinical Impression: Common biliary duct calculus, Jaundice with stoppage of bile flow, Diabetes mellitus, History of pancreatic cancer, Prostate cancer COPD (chronic obstructive pulmonary disease) Qualifiers: COPD type: chronic bronchitis Chronic bronchitis type: unspecified Qualified Code(s): J42 - Unspecified chronic bronchitis Disposition: Acute Care Hospital Transfer Decision to Admit: Admit from ER Transfer To: [facility] Reason For Transfer: Surgeon request Accepting Physician: Dr. Arreola/ Dr. Loyd Time Discussed w/Accepting Physician: 22:54 Condition: (2) Stable Forms: Patient Portal Access Quality - Quality Measures Quality Measures: N/A - Blood Pressure Screening Does Patient Have Any of the Following: No Blood Pressure Classification: Hypertensive Reading Systolic Measurement: 135 Diastolic Measurement: 90 Screening for High Blood Pressure: < Pre-Hypertensive BP, F/U Documented > [G8950] Pre-Hypertensive Follow-up Interventions: Follow-up with rescreen every year.
[2018-09-05] MEDS ORDERED: 0.9 % SODIUM CHLORIDE 1,000 ML BAG IV ONE ×2 (19:31→19:34)
[2018-09-05] MEDS ORDERED: IPRATROPIUM/ALBUTEROL (0.5MG/3MG) NEB INH ONE (19:34)
[2018-09-05 19:59] LABS: ABSOLUTE NEUTROPHIL COUNT 13.43; BASO % 0.1 % (0-6); EOS % 0.1 % (0-6); HEMOGLOBIN 12.9 gm/dl (14.0-18.0); LYMPH % 2.1 % (16-45); MEAN CELL VOLUME 92.2 fl (81-97); MEAN CORPUSCULAR HEMOGLOBIN 31.3 pg (27-33); MEAN CORPUSCULAR HGB CONC 33.9 g/dl (32-36); MONO % 3.4 % (0-9); PLATELET COUNT 219 K/uL (130-400); RED BLOOD COUNT 4.12 M/uL (4.40-5.70); RED CELL DISTRIBUTION WIDTH 15.3 % (11.5-14.5); WHITE BLOOD COUNT W/O DIFF 14.2 K/uL (4.2-12.2)
[2018-09-05 20:09] LABS: BLOOD UREA NITROGEN 16 mg/dL (8-23); CREATININE 0.4 mg/dL (0.7-1.2); EST GLOMERULAR FILTRATION RATE > 60 mL/min
[2018-09-05 20:10] LABS: LIPASE 4 U/L (13-60); TOTAL PROTEIN 6.5 g/dL (6.6-8.7)
[2018-09-05 20:11] LABS: INR 1.2; PARTIAL THROMBOPLASTIN TIME 32.6 SECONDS (24.5-39.1); PROTHROMBIN TIME (PATIENT) 11.6 SECONDS (9.5-12.1)
[2018-09-05 20:12] LABS: GLUCOSE,RANDOM 267 mg/dL (74-109)
[2018-09-05 20:14] LABS: STREP A SCREEN NEGATIVE (NEGATIVE)
[2018-09-05 20:15] LABS: ALBUMIN 3.2 g/dL (4.0-5.0); ALKALINE PHOSPHATASE 890 U/L (40-129); ALT/SGPT 149 U/L (<41); AST/SGOT 143 U/L (10.0-50.0)
[2018-09-05 20:25] LABS: INFLUENZA A NEGATIVE (NEGATIVE); INFLUENZA B NEGATIVE (NEGATIVE)
[2018-09-05] MEDS ORDERED: KETOROLAC 30 MG/ML VIAL IVP ONE (21:05)
[2018-09-05] MEDS ORDERED: CEFTRIAXONE SODIUM 1 GM in 0.9 % SODIUM CHLORIDE 100ML 100 ML IVPB ONE (21:38)
[2018-09-05 21:56] LABS: URINE APPEARANCE CLEAR; URINE BILIRUBIN LARGE (NEGATIVE); URINE BLOOD SMALL (NEGATIVE); URINE COLOR ORANGE; URINE GLUCOSE (UA) >=1000 mg/dL (NEGATIVE); URINE KETONE NEGATIVE (NEGATIVE); URINE LEUKOCYTE ESTERASE NEGATIVE (NEGATIVE); URINE NITRITE NEGATIVE (NEGATIVE); URINE UROBILINOGEN 0.2 E.U./dL (0.20 - 1.00)
[2018-09-05 22:06] LABS: URINE BACTERIA NONE SEEN; URINE EPITHELIAL CELLS 0 - 2 (FEW); URINE WBC 0 - 2 (0-2/hpf)
[2018-09-05] MEDS ORDERED: METRONIDAZOLE IVPB 500 MG/100 ML BAG IVPB ONE (22:50)
--- NOTE | 2018-09-07 07:21 | CT SCAN REPORT ---
EXAM: CT OF THE HEAD WITHOUT IV CONTRAST HISTORY: FEVER, LETHARGY. TECHNIQUE: Helical CT scan of the head was obtained without intravenous contrast. Hand dominance: Right. Comparison: CT head 04/19/18. FINDINGS: Moderate periventricular and deep white matter low density changes are consistent with chronic microvascular ischemic disease. The ventricles have normal size. The basal cisterns are patent. No hemorrhage. No mass effect or midline shift. The calvarium is intact. The paranasal sinuses and middle ear cavities are unremarkable. IMPRESSION: THERE ARE FINDINGS OF CHRONIC MICROVASCULAR ISCHEMIC DISEASE, SIMILAR TO THE PREVIOUS EXAM. NO ACUTE INTRACRANIAL ABNORMALITIES. JOB NUMBER: [id number] MTDD
--- NOTE | 2018-09-07 07:34 | CT ANGIOGRAM REPORT ---
EXAM: CT ANGIOGRAM OF THE CHEST AND CT OF THE ABDOMEN AND PELVIS HISTORY: CHEST AND EPIGASTRIC PAIN, SHORTNESS OF BREATH. LETHARGY. TECHNIQUE: Helical CT angiogram of the chest was obtained after the administration of 100 ml of intravenous Omnipaque 350. Maximum intensity projection images were obtained. Comparison: CT of the abdomen and pelvis 06/25/18. FINDINGS: CTA OF THE CHEST: Mild to moderate emphysematous change with chronic peribronchial thickening and mucous plugging in the distal right lower lobe, similar to previous exam. No consolidation. Moderate aortic valvular and coronary artery calcifications. No pericardial effusion. No aortic aneurysm or dissection. No filling defects in the proximal pulmonary arteries. No pleural effusion. No pneumothorax. CT OF THE ABDOMEN: Post surgical changes from Whipple procedure. Intrahepatic biliary ductal dilation is moderate, similar to previous exam. Stone in the common bile duct, best seen on coronal images 59 and 60 measures 13 mm transverse and 16 mm in length. No liver lesions. The spleen is within normal limits. The adrenal glands are again thickened. Parapelvic cyst in the left kidney. The bowel has normal caliber. Previously seen mesenteric nodes are similar measuring up to 12 mm in diameter. No new adenopathy. Severe atherosclerotic changes of the infrarenal abdominal aorta again seen. CT OF THE PELVIS: No ascites or fluid collections. The urinary bladder is unremarkable. The bony structures show no suspicious lesions. IMPRESSION: 1. MODERATE EMPHYSEMATOUS CHANGE WITH FINDINGS OF CHRONIC BRONCHITIS. 2. NO EVIDENCE OF PULMONARY EMBOLISM OR AORTIC DISSECTION. 3. POST SURGICAL CHANGES OF WHIPPLE PROCEDURE. STONE IN THE COMMON BILE DUCT IS CAUSING MODERATE INTRAHEPATIC BILIARY DUCTAL DILATION. 4. STABLE MESENTERIC NODES. JOB NUMBER: [id number] [facility]
== END 2018-09-06 00:02 | disposition short-term general hospital (02) ==
LOC: ER 19:05
DX: K80.51 Calculus of bile duct without cholangitis or cholecystitis with obstruction (principal); R17 Unspecified jaundice; J44.9 Chronic obstructive pulmonary disease, unspecified; E11.9 Type 2 diabetes mellitus without complications; R53.1 Weakness; R10.13 Epigastric pain; I25.2 Old myocardial infarction; F17.210 Nicotine dependence, cigarettes, uncomplicated; Z85.46 Personal history of malignant neoplasm of prostate; Z85.07 Personal history of malignant neoplasm of pancreas
CPT/HCPCS: 70450; 71275; 74174; 74177; 80053; 81001; 82140; 83605; 83690; 84484; 85027; 85379; 85610; 85730; 87400; 87880; 93005; 93010; 94640; 96365; 96366; 96375; 99285; J1885